=== PATIENT | male | born 1970 | race Caucasian/White ===

== ENCOUNTER 2022-03-27 07:16 | Outpatient (CLI) | payer OTHER, SELFPAY ==
--- NOTE | 2022-04-16 23:51 | WPDHOMESLEEP ---
Sleep Study - Home Unattended Date of Study: 03/27/22 Ordering Provider: Jung Gann, Interpreting Provider: Mya Trejo, DO Home Sleep Study Type: Watch PAT Height: 1.73 m Weight: 117.934 kg Body Mass Index: 39.5 Neck Circumference (inches): 16.75 [place]: 19 Reason for Sleep Study Loud snoring, unrefreshing sleep Sleep History The patient is a 51-year-old male with hyperlipidemia, depression, GERD, anxiety, neuropathy, polyarthralgia and history of tobacco use disorder that had a sleep study ordered by his physician for evaluation of sleep apnea. The patient frequently awakens from sleep short of breath. He occasionally awakens at night with heartburn, belching or cough. He constantly snores loud enough that others complain. He frequently has trouble sleeping when he has a cold. He occasionally wakes up gasping for air throughout the night. He occasionally has breathing problems at night observed by himself or others. He rarely sweats excessively at night. He denies having heart palpitations or irregular heartbeats during the night. He constantly falls asleep during the day and occasionally falls asleep while driving. He denies sleep paralysis, cataplexy and hypnagogic / hypnopompic hallucinations. He occasionally has trouble at school or work due to sleepiness. He occasionally feels afraid of going to sleep. He denies having nightmares. He rarely remembers his dreams. He constantly has thoughts racing through his mind. He frequently feels sad, depressed and anxious. He constantly has muscular tension. He occasionally notices parts of his body jerk. He frequently kicks during the night. He constantly experiences crawling and aching feelings in his legs and occasionally has leg pain during the night. He denies grinding his teeth during sleep and awakening with morning jaw pain. He is frequently bothered by pain during the day but rarely awakened by pain during the night. He constantly wakes up feeling stiff in the morning. He constantly wakes up with sore or achy muscles. He constantly wakes up with pain in the neck, spine or other joints. The patient goes to bed between 9-11 p.m. on both weekdays and weekends. He is unsure how long it takes him to fall asleep. He wakes up 4-6 times throughout the night for unknown reasons. It takes him 10-60 minutes to fall asleep. He wakes up at 4:30 a.m. on weekdays for work. He does not have a set wake-up time on the weekends. Typically gets 3-4 hours of interrupted sleep throughout the night. He does not stay in bed after waking up in the morning. He currently lives alone. He will consume caffeinated beverages within 2 hours of bedtime. He does not engage in physical exercise before bedtime. He will watch television before falling asleep. He will take naps in the afternoon or the evening and they are refreshing. The patient drinks 3 caffeinated beverages per day. The patient used to smoke cigarettes. He does not consume alcohol daily. He denies recreational drug use. [facility] Family History Family History Other Diabetes mellitus Hypertension Sleep Procedure The sleep study was completed using WatchPAT a technically adequate device with seven channels: peripheral arterial tone, actigraphy, body position, snore, respiratory movement, pulse oximetry, sleep staging, and heart rate. Prior to using the device, the patient received verbal and written instructions for its application and was provided with the help desk phone number for additional telephonic instruction with 24-hour availability of qualified personnel to answer questions. The study was scored using [facility] guidelines. Sleep Architecture The patient had a total recording time of 7 hours 18 minutes and total sleep time of 7 hours 1 minute. The sleep efficiency was 96.12%. Sleep latency was 5 minutes and REM latency was 57 minutes. The patient had
[2022-04-17] VITALS: BMI 39.5
--- NOTE | 2022-08-14 11:22 | SLEEP ---
new calls on new test dos 08/13
== END 2022-03-30 10:02 | disposition home or self-care (01) ==
PROVIDERS: PCP Family Medicine; Visit Provider Family Medicine
DX: G47.33 Obstructive sleep apnea (adult) (pediatric) (principal)
CPT/HCPCS: 95800

== ENCOUNTER 2022-06-29 12:58 | Inpatient (IN) | payer OTHER, SELFPAY ==
[2022-06-29 13:53] VITALS: BP 155/89; PULSE 89; RESP 16; TEMP 36.8; O2SAT 97
[2022-06-29 14:38] LABS: Hematocrit 41.1 % (42.0-52.0); Hemoglobin 13.3 g/dL (14.0-18.0); Mean Corpuscular HGB Conc 32.4 g/dl (32-36); Mean Corpuscular Hemoglobin 30.8 pg (26-34); Mean Corpuscular Volume 95.1 fl (80-100); Platelet Count Result 479 k/mm3 (150-375); Red Blood Count 4.32 M/mm3 (4.6-6.20); Red Cell Distribution Width 15.3 % (11.5-14.5); White Blood Count 12.2 K/mm3 (4.5-10.0)
[2022-06-29 14:50] LABS: Alanine Aminotransferase 27 U/L (6-50); Albumin Level 3.8 g/dL (3.5-5.1); Alkaline Phosphatase 81 U/L (38-126); Anion Gap 3 mmol/L (8-16); Aspartate Amino Transferase 24 U/L (17-59); Bilirubin,Total 0.5 mg/dL (0.2-1.3); Blood Urea Nitrogen 19 mg/dL (9-20); Carbon Dioxide 33 mmol/L (22-30); Chloride 101 mmol/L (98-107); Estimated CRCL calculation 137 ml/min; Estimated Glomerular Filt Rate > 60; Glucose 116 mg/dL (65-110); Potassium 4.3 mmol/L (3.4-5.0); Sodium 137 mmol/L (137-145)
[2022-06-29 14:58] LABS: Eosinophils Absolute Manual 0.24 K/mm3 (0.02-0.5); Eosinophils Percent Manual 2 % (0-4); Lymphocytes Absolute Manual 2.68 K/mm3 (1.1-4.5); Lymphocytes Percent Manual 22 % (18-44); Metamyelocytes Percent 3 %; Monocytes Absolute Manual 0.48 K/mm3 (0.1-0.90); Monocytes Percent Manual 4 % (3-9); Neutrophils Percent Manual 69 % (46-73); Total Cells Counted 100
[2022-06-29 14:59] LABS: Nucleated Red Blood Cells 1 %; Platelet Estimate Increased (Adequate); Schistocytes None Seen (NORMAL); Target Cells 1+ (NORMAL)
--- NOTE | 2022-06-29 15:19 | ED.SKABFB ---
HPI - Skin/Abscess/Foreign Bdy General Chief complaint: Skin/Abscess/Foreign Body Stated complaint: left leg cellulitis Time Seen by Provider: 06/29/22 14:50 History of Present Illness HPI narrative: Patient is a 51-year-old male who presents ER with cellulitis to his left leg. Symptoms began with fatigue on 06/19/2022. He then slept all day on 06/20 and 06/21. On 06/22 he ended up seeing a physician. He happened to be on a cruise when his symptoms were beginning. The physician on the boat put him on antibiotics and then he went to [place] on 06/23 and had an ultrasound rule out DVT in his left leg. He continues to take flucloxacillin without improvement of his leg. He has weeping coming from his leg. 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 Patient denies having diabetes despite having his chart documenting he is diabetic. Related Data Home Medications Medication Instructions Recorded Confirmed aspirin 81 mg tablet 81 mg PO DAILY 06/29/22 06/29/22 atorvastatin 40 mg tablet 40 mg PO HS 06/29/22 06/29/22 baclofen 20 mg tablet 20 mg PO PRN PRN Back Pain 06/29/22 06/29/22 diclofenac sodium 75 mg 75 mg PO AC 06/29/22 06/29/22 tablet,delayed release gabapentin 600 mg tablet 600 mg PO HS 06/29/22 06/29/22 metformin 500 mg tablet,extended 500 mg PO 3XW 06/29/22 06/29/22 release 24 hr omega-3 fatty acids 1,000 mg PO DAILY 06/29/22 06/29/22 Allergies Allergy/AdvReac Type Severity Reaction Status Date / Time No Known Allergies Allergy Verified 06/29/22 15:28 Review of Systems Review of Systems: All systems reviewed & are unremarkable except as noted in HPI and below Constitutional: Constitutional: Denies chills, Denies fatigue and Denies fever(s) Cardiovascular: Cardiovascular: Denies chest pain, Denies rapid heart rate and Denies radiating jaw, neck or arm pain Respiratory: Respiratory: Denies cough and Denies dyspnea Gastrointestinal: Gastrointestinal: Denies abdominal pain, Denies nausea and Denies vomiting Integumentary/Breasts: Skin/Breast: Reports erythema, Reports rash and Reports skin ulcer PMFSH Past Medical History Medical History (Updated 06/29/22 @ 22:33 by Michelle Zepeda NP) DM2 (diabetes mellitus, type 2) DVT (deep venous thrombosis) Hyperlipidemia Neuropathy Pancreatitis Surgical History Surgical History (Updated 06/29/22 @ 22:24 by Michelle Zepeda NP) H/O splenectomy History of pancreatic surgery History of tonsillectomy and adenoidectomy S/P IVC filter Family History Family History Mother Hypertension Thyroid condition Hyperlipidemia Father Kidney disease Lymphoma Sibling Hyperlipidemia Neuropathy Other Diabetes mellitus Social History Social History (Updated 06/29/22 @ 22:25 by Michelle Zepeda NP) Social History: He lives alone with his PET rabbit. He works for [employer]. He Runs the kitchen. He has no children and he is single. Code status full code Smoking packs per day: 1 Smoking cigarettes per day: 20.0 Years smoked: 38 Smoking pack-years: 38.00 Smoking status: Former smoker Tobacco type: cigarettes Second hand tobacco smoke exposure: No Alcohol intake: current Drinks per week: 1 Substance use: former Substance use type: marijuana and crack/cocaine Last use: 1999 Lack of Transportation: No Lack of Food: Never True Current Housing: I Have Housing Concerned About Future Housing: No Difficulty Paying Gas/Electric Bills: No Difficulty Paying for Meds: No Currently Unemployed: No Education: High School Diploma/GED Difficulty w/ Childcare or Family Care: No Spiritual care concerns: No Exam Narrative: GENERAL: Well-appearing, well-nourished, and in no acute distress. HEAD: Normocephalic, atraumatic. ENT: Mucous membranes moist. CH
[2022-06-29] MEDS: MORPHINE SULFATE (*CRX) 4 MG/ML INJ IV PUSH (15:36)
--- NOTE | 2022-06-29 15:53 | PM.IMHP ---
H&P: HPI History of Present Illness Date/Time: 06/29/22 15:53 Chief Complaint: Skin infection. Narrative: This is a 51-year-old male patient who had a pedicure prior to going on a cruise. During the cruise the patient notice that his left leg started to become red and during the course of the cruise his left leg continue to get redder and redder. He was seen by the physician on the boat and was given antibiotics. The patient stated that it did not improve and he was placed in the hospital in [facility] overnight. He stated that he was given IV antibiotics during the course of the night and then placed on p.o. medication. The patient stated that this all started with a blister to the left posterior heel area that then popped and the redness continued to grow bigger. He denies any fever or chills. However the patient stated that he is not getting any better. His white count is noted to be 12.2. H&H is 13.3 and 41.1. The patient is negative for influenza A/B and COVID. The patient is on metformin 3 times a week but is unsure if he is diabetic. The patient initially was started on vancomycin. Cefepime and Flagyl have been added. The left leg is red and edematous. The patient stated that he was already checked for DVT and was found to be negative. The patient was given morphine and vancomycin in the emergency room. The patient is being admitted to observation status on the date of service of 06/29/2022 Review of Systems Review of Systems: See HPI All systems reviewed & are unremarkable except as noted in HPI and below Constitutional: Constitutional: Reports as per HPI and Reports no additional constitutional complaints Eyes: Eyes: Reports as per HPI and Reports no additional eye complaints ENT: Reports system reviewed and no additional complaints, except as documented and Reports Normal hearing present Cardiovascular: Cardiovascular: Reports no additional cardiovascular complaints Respiratory: Respiratory: Reports no additional respiratory complaints and Reports no additional respiratory complaints Gastrointestinal: Gastrointestinal: Reports as per HPI and Reports no additional gastrointestinal complaints Musculoskeletal: Musculoskeletal: Reports no additional musculoskeletal complaints Integumentary/Breasts: Skin/Breast: Reports system reviewed and no additional complaints, except as docu and Reports as per HPI Neurologic: Reports system reviewed and no additional complaints, except as documented, Reports as per HPI and Reports Normal hearing present Psychiatric: Psychiatric: Reports no additional psychiatric complaints and Reports as per HPI Endocrine: Endocrine: Reports no additional endocrine complaints Hematologic/Lymphatic: Hematologic/Lymphatic: Reports no additional hematologic/lymphatic complaints Allergic/Immunologic: Allergic/Immunologic: Reports no additional allergic/immunologic complaints [facility] Past Medical History Medical History (Updated 06/29/22 @ 22:33 by Michelle Zepeda NP) DM2 (diabetes mellitus, type 2) DVT (deep venous thrombosis) Hyperlipidemia Neuropathy Pancreatitis Surgical History Surgical History (Updated 06/29/22 @ 22:24 by Michelle Zepeda NP) H/O splenectomy History of pancreatic surgery History of tonsillectomy and adenoidectomy S/P IVC filter Family History Family History Mother Hypertension Thyroid condition Hyperlipidemia Father Kidney disease Lymphoma Sibling Hyperlipidemia Neuropathy Other Diabetes mellitus Social History Social History (Updated 06/29/22 @ 22:25 by Michelle Zepeda NP) Social History: He lives alone with his PET rabbit. 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 Code status full code Smoking packs per day: 1 Smoking cigarettes per day: 20.0 Years smoked: 38 Smoking pack-years: 38.00 Smoking s
[2022-06-29 16:31] LABS: Influenza A QL RT-PCR Negative (Negative); Influenza B QL RT-PCR Negative (Negative); SARS-CoV-2 RNA PCR Negative
[2022-06-29 17:31] VITALS: BP 144/86; PULSE 90; RESP 18; O2SAT 98
[2022-06-29 17:54] LABS: Glucose Point of Care 94 mg/dl (65-105)
--- NOTE | 2022-06-29 18:33 | ADMGEN ---
This patient, Dominick Hernandez, was admitted to [facility] Surg Room 326-01. Patient/family oriented to hospital policies and general routines including ID bracelet, bed and alarms, visiting hours, pain management, procedures, bathroom and other care routines, personal items, smoking policy, room service/diet, and visiting hours. Information on how to activate the Rapid Response Team has been discussed. Patient/Family are encouraged to report perceived risks to care and to ask questions if they do not understand what they are told or what they should do.
[2022-06-29] MEDS: HYDROcodone/acetaminophen (*CRX) 5-325 MG TABLET 1 TAB PO (18:52)
[2022-06-29 21:06] LABS: Glucose Point of Care 141 mg/dl (65-105)
[2022-06-29 22:00] VITALS: BP 135/79; PULSE 87; RESP 16; TEMP 36.1; O2SAT 95
[2022-06-29] MEDS: GABAPENTIN 300 MG CAPSULE 600 MG PO (22:09)
[2022-06-29] MEDS: metroNIDAZOLE 500 MG/ISO 100ML 500 MG/100 ML BAG 100 MG IVPB (22:17)
[2022-06-30] MEDS: HYDROcodone/acetaminophen (*CRX) 5-325 MG TABLET 1 TAB PO ×4 (02:42→21:46)
[2022-06-30 06:00] VITALS: BP 150/71; PULSE 76; RESP 14; TEMP 36; O2SAT 95
[2022-06-30] MEDS: metroNIDAZOLE 500 MG/ISO 100ML 500 MG/100 ML BAG 100 MG IVPB ×3 (06:03→22:54)
[2022-06-30 07:39] LABS: Hematocrit 39.1 % (42.0-52.0); Hemoglobin 12.5 g/dL (14.0-18.0); Mean Corpuscular Hemoglobin 29.7 pg (26-34); Mean Corpuscular Volume 92.9 fl (80-100); Mean Platelet Volume 9.7 fl (7.4-10.4); Platelet Count Result 460 k/mm3 (150-375); Red Blood Count 4.21 M/mm3 (4.6-6.20); Red Cell Distribution Width 15.2 % (11.5-14.5)
[2022-06-30 07:48] LABS: Lactic Acid Reflex 0.9 mmol/L (0.7-2.0)
[2022-06-30 08:00] VITALS: BP 139/84; PULSE 91; RESP 18; TEMP 36.2; O2SAT 94
[2022-06-30 08:06] LABS: Band Neutrophils Percent 4 % (0-6); Eosinophils Absolute Manual 0.36 K/mm3 (0.02-0.5); Eosinophils Percent Manual 3 % (0-4); Lymphocytes Absolute Manual 2.16 K/mm3 (1.1-4.5); Metamyelocytes Percent 3 %; Monocytes Percent Manual 5 % (3-9); Neutrophils Absolute Manual 8.52 K/mm3 (1.3-6.7); Neutrophils Percent Manual 67 % (46-73); Schistocytes None Seen (NORMAL); Total Cells Counted 100
[2022-06-30 08:07] LABS: Anisocytosis 1+ (NORMAL); Atypical Lymphocytes Present
[2022-06-30] MEDS: ENOXAPARIN 40 MG/0.4 ML SYRINGE SUB-Q (08:08)
[2022-06-30] MEDS: ASPIRIN 81 MG CHEWABLE TABLET PO (08:08)
[2022-06-30 08:17] LABS: Hemoglobin A1C 5.9 % (<5.7)
[2022-06-30 08:19] LABS: Glucose Point of Care 129 mg/dl (65-105)
--- NOTE | 2022-06-30 10:57 | PM.IMPN ---
Progress Note: A&P Assessment and Plan (1) Cellulitis: Code(s): L03.90 - Cellulitis, unspecified Status: Acute Assessment and Plan: The patient was placed on vancomycin, Flagyl and cefepime. The patient had been treated with outpatient antibiotics as well as IV antibiotics in hospital overnight on his cruise vacation. Blood and wound cultures are pending. Tailor antibiotics to culture results (2) DM2 (diabetes mellitus, type 2): Code(s): E11.9 - Type 2 diabetes mellitus without complications Status: Acute Assessment and Plan: The patient was on metformin 3 times a week. However the patient stated that he is not sure why he is on it and does not think that he is diabetic. He is agreeable to Accu-Cheks AC and HS with sliding scale insulin and checking A1c. (3) Neuropathy: Code(s): G62.9 - Polyneuropathy, unspecified Status: Acute Assessment and Plan: Continue with gabapentin (4) Hyperlipidemia: Code(s): E78.5 - Hyperlipidemia, unspecified Status: Acute Assessment and Plan: Continue with atorvastatin (5) KAVYA (obstructive sleep apnea): Code(s): G47.33 - Obstructive sleep apnea (adult) (pediatric) Status: Acute Assessment and Plan: -the patient wears a BiPAP at home. Please titrate to home settings. Subjective Date/time seen: 06/30/22 10:57 No new complaints Exam Narrative: left leg Const: General: cooperative, healthy appearing, comfortable, no acute distress, well developed, awake, Physically active, average body habitus and well nourished Nutritional Appearance: average body habitus and well nourished Orientation/consciousness: oriented to person, oriented to place, oriented to time and patient oriented x3 Limitations: no limitations HENMT: Head: normal to inspection, No palpable skull fracture present, normocephalic, atraumatic and abrasion Ears: hearing grossly normal bilaterally, external ears normal and TM's normal bilaterally Face/Nose/Sinus: Normal external nose present, Normal nares present and No nasal polyps present Mouth: Yes Normal oral and palatal mucosa present Throat: posterior oropharynx normal Eyes: General: appearance normal, both eyes and all related structures Alignment and Position: alignment normal Periorbital: periorbital findings normal Eyelids: eyelids normal Conjunctivae: conjunctivae normal Sclera: sclerae normal Cornea: corneas normal Pupils: Equal, round and reactive pupils present and Pupil accommodation reflex normal EOM: EOMs intact bilaterally Neck: Neck: normal visual inspection, full ROM, no lymphadenopathy, trachea midline and supple Thyroid: thyroid normal Carotids: normal carotid upstroke Lymphatic: no lymphadenopathy noted Chest: Chest palpation & inspection: normal inspection of the chest Resp: Effort & Inspection: normal respiratory effort Auscultation: clear to auscultation bilaterally Percussion: percussion normal Cardio: Palpation: normal PMI Rate: regular rate Rhythm: regular rhythm Heart sounds: S1 normal heart sound present and S2 normal heart sound present Peripheral pulses: Peripheral pulses 2+ throughout GI: Inspection: normal to inspection Auscultation: normal bowel sounds Rectal Exam: deferred : General: Yes no CVA tenderness Back/Spine/Pelvis: Back: no CVA tenderness Cervical Spine: cervical ROM normal Thoracic/Lumbar Spine: thoracic and lumbar spine normal to inspection Pelvis: no pain with anterior-posterior compression Skin: General skin exam: normal color Lesions: no lesions Rashes: no rashes Trauma: no lacerations or abrasions Wounds: no wounds Hair: normal Nails: normal Neuro: General: oriented to person, oriented to place, oriented to time and patient oriented x3 Cranial nerves: Yes Equal, round and reactive pupils present and Yes Normal hearing present Cognition (Neuro): normal cognition Speech: normal speech Gait exam (Neuro): Normal ga
[2022-06-30 12:00] VITALS: BP 138/78; PULSE 78; RESP 16; TEMP 36.3; O2SAT 95
[2022-06-30 12:04] LABS: Glucose Point of Care 90 mg/dl (65-105)
[2022-06-30 13:35] VITALS: BP 127/77; PULSE 71; RESP 16; TEMP 36.4; O2SAT 94
[2022-06-30] MEDS: OMEGA 3 POLYUNSAT FATTY ACIDS 1 GM CAP PO ×2 (14:15→17:25)
[2022-06-30] MEDS: SILVERGEL (ELTA) 45 ML 1 APPLIC TOPICAL (14:18)
[2022-06-30 16:00] VITALS: BP 138/75; PULSE 76; RESP 16; TEMP 36.3; O2SAT 95
[2022-06-30] MEDS: DICLOFENAC SOD 75 MG TABLET.EC PO (17:26)
[2022-06-30 17:33] LABS: Glucose Point of Care 83 mg/dl (65-105)
[2022-06-30 20:00] VITALS: BP 144/87; PULSE 74; RESP 16; TEMP 36.3; O2SAT 93
[2022-06-30] MEDS: ATORVASTATIN 40 MG TABLET PO (20:39)
[2022-06-30] MEDS: GABAPENTIN 300 MG CAPSULE 600 MG PO (20:39)
[2022-06-30 21:45] LABS: Glucose Point of Care 133 mg/dl (65-105)
--- NOTE | 2022-06-30 22:10 | PCRCNOTE ---
pt states that he is waiting on his doctor to get him a home CPAP, and he has not worn a CPAP before. states he will wait for the outpatient study.
[2022-07-01] VITALS: BP 129/81; PULSE 76; RESP 16; TEMP 35.9; O2SAT 94
[2022-07-01 03:59] LABS: Vancomycin Trough 13.6 ug/mL (10.0-20.0)
[2022-07-01 04:00] VITALS: BP 145/97; PULSE 90; RESP 14; TEMP 35.9; O2SAT 93
[2022-07-01] MEDS: metroNIDAZOLE 500 MG/ISO 100ML 500 MG/100 ML BAG 100 MG IVPB ×3 (07:31→21:53)
[2022-07-01 08:00] VITALS: BP 138/88; PULSE 75; RESP 16; TEMP 36; O2SAT 92
[2022-07-01 08:15] LABS: Glucose Point of Care 110 mg/dl (65-105)
--- NOTE | 2022-07-01 08:44 | PM.IMPN ---
Progress Note: A&P Assessment and Plan (1) Cellulitis: Code(s): L03.90 - Cellulitis, unspecified Status: Acute (2) DM2 (diabetes mellitus, type 2): Code(s): E11.9 - Type 2 diabetes mellitus without complications Status: Acute (3) Neuropathy: Code(s): G62.9 - Polyneuropathy, unspecified Status: Acute (4) Hyperlipidemia: Code(s): E78.5 - Hyperlipidemia, unspecified Status: Acute (5) KAVYA (obstructive sleep apnea): Code(s): G47.33 - Obstructive sleep apnea (adult) (pediatric) Status: Acute Plan Assessment and Plan (1) Cellulitis: ?Code(s): L03.90 - Cellulitis, unspecified ?Status:?Acute ?Assessment and Plan: The patient was placed on vancomycin, Flagyl and cefepime.? The patient had been treated with outpatient antibiotics as well as IV antibiotics in hospital overnight on his cruise vacation. Blood and wound cultures no growth so sore for Cellulitis is improving Continue current antibiotics (2) DM2 (diabetes mellitus, type 2): ?Code(s): E11.9 - Type 2 diabetes mellitus without complications ?Status:?Acute ?Assessment and Plan: The patient was on metformin 3 times a week.? However the patient stated that he is not sure why he is on it and does not think that he is diabetic.? He is agreeable to Accu-Cheks AC and HS with sliding scale insulin and checking A1c. (3) Neuropathy: ?Code(s): G62.9 - Polyneuropathy, unspecified ?Status:?Acute ?Assessment and Plan: Continue with gabapentin (4) Hyperlipidemia: ?Code(s): E78.5 - Hyperlipidemia, unspecified ?Status:?Acute ?Assessment and Plan: Continue with atorvastatin (5) KAVYA (obstructive sleep apnea): ?Code(s): G47.33 - Obstructive sleep apnea (adult) (pediatric) ?Status:?Acute ?Assessment and Plan: -the patient wears a BiPAP at home.? Please titrate to home settings. Subjective Date/time seen: 07/01/22 08:44 Saw exam patient. Denies fever, chills, chest pain, shortness of breath. Patient has no new issue even over the night. Swelling, redness, pain of the left lower extremity is subsiding Exam Narrative: GENERAL: Pleasant, in no acute distress. Well-nourished. - EYES: EOMI. Anicteric. - HENT: Moist mucous membranes. - LUNGS: Clear to auscultation bilaterally, no wheezing, rhonchi, or rales. - CARDIOVASCULAR: Regular rate and rhythm. No murmur. No JVD. - ABDOMEN: Soft, non-tender and non-distended. No palpable masses. - EXTREMITIES: 2+ the left lower extremity edema. Peripheral pulses 2+. Non-tender. - NEUROLOGIC: No focal neurological deficits. CN II-XII grossly intact. - PSYCHIATRIC: Awake, Alert and oriented x 3. Appropriate mood and affect. - SKIN: Tenderness, swelling, erythema of left lower extremity. - LYMPH: No cervical lymphadenopathy. Objective Data Vital Signs Vital Signs: Vital Signs - 24 hr 06/30/22 13:35 06/30/22 12:00 06/30/22 16:00 Temperature 97.6 F 97.4 F L 97.4 F L Pulse Rate 71 78 76 Respiratory Rate 16 16 16 Blood Pressure 127/77 138/78 138/75 Pulse Oximetry 94 95 95 Oxygen Delivery 06/30/22 20:00 07/01/22 00:00 06/30/22 20:00 Temperature 97.3 F L 96.7 F L Pulse Rate 74 76 Respiratory Rate 16 16 Blood Pressure 144/87 H 129/81 Pulse Oximetry 93 94 Oxygen Delivery Room Air 07/01/22 04:00 07/01/22 08:00 Temperature 96.7 F L 96.8 F L Pulse Rate 90 75 Respiratory Rate 14 16 Blood Pressure 145/97 H 138/88 Pulse Oximetry 93 92 Oxygen Delivery Intake/Output Intake/Output: Intake & Output 06/28/22 06/29/22 06/30/22 07/01/22 23:59 23:59 23:59 23:59 Intake Total 2967 450 Balance 2967 450 Meds/Results Medications: Active Medications Generic Name Dose Route Start Last Admin Trade Name Freq PRN Reason Stop Dose Admin Acetaminophen 650 mg 02/13/23 15:22 Acetaminophen 325 Mg Tablet PO Q4H PRN Mild Pain (1-3) or Fever Hydrocodone Bitart/Acetaminophe
[2022-07-01] MEDS: ASPIRIN 81 MG CHEWABLE TABLET PO (08:49)
[2022-07-01] MEDS: OMEGA 3 POLYUNSAT FATTY ACIDS 1 GM CAP PO ×3 (08:49→16:43)
[2022-07-01] MEDS: SILVERGEL (ELTA) 45 ML 1 APPLIC TOPICAL (08:49)
[2022-07-01] MEDS: ENOXAPARIN 40 MG/0.4 ML SYRINGE SUB-Q (08:49)
[2022-07-01] MEDS: DICLOFENAC SOD 75 MG TABLET.EC PO ×2 (08:49→16:43)
[2022-07-01] MEDS: HYDROcodone/acetaminophen (*CRX) 5-325 MG TABLET 1 TAB PO ×2 (08:54→20:25)
[2022-07-01 09:52] LABS: Hematocrit 39.8 % (42.0-52.0); Hemoglobin 12.6 g/dL (14.0-18.0); Mean Corpuscular HGB Conc 31.7 g/dl (32-36); Mean Corpuscular Hemoglobin 29.7 pg (26-34); Mean Corpuscular Volume 93.9 fl (80-100); Mean Platelet Volume 10.1 fl (7.4-10.4); Platelet Count Result 454 k/mm3 (150-375); Red Blood Count 4.24 M/mm3 (4.6-6.20); White Blood Count 11.9 K/mm3 (4.5-10.0)
[2022-07-01 10:15] LABS: Anion Gap 1 mmol/L (8-16); Blood Urea Nitrogen 13 mg/dL (9-20); Calcium 8.4 mg/dL (8.4-10.2); Carbon Dioxide 35 mmol/L (22-30); Chloride 99 mmol/L (98-107); Estimated CRCL calculation 137 ml/min; Estimated Glomerular Filt Rate > 60; Glucose 140 mg/dL (65-110); Sodium 135 mmol/L (137-145)
[2022-07-01 11:26] LABS: Glucose Point of Care 85 mg/dl (65-105)
[2022-07-01 14:00] VITALS: BP 135/83; PULSE 83; RESP 18; TEMP 36.9; O2SAT 97
[2022-07-01 16:37] LABS: Glucose Point of Care 89 mg/dl (65-105)
[2022-07-01] MEDS: GABAPENTIN 300 MG CAPSULE 600 MG PO (20:25)
[2022-07-01] MEDS: ATORVASTATIN 40 MG TABLET PO (20:25)
[2022-07-01 21:14] LABS: Glucose Point of Care 96 mg/dl (65-105)
[2022-07-01 21:39] VITALS: BP 118/66; PULSE 83; RESP 16; TEMP 36.4; O2SAT 94
[2022-07-02 06:00] VITALS: BP 133/82; PULSE 80; RESP 16; TEMP 36.1; O2SAT 91
[2022-07-02] MEDS: metroNIDAZOLE 500 MG/ISO 100ML 500 MG/100 ML BAG 100 MG IVPB ×3 (06:24→20:31)
[2022-07-02 07:48] LABS: Glucose Point of Care 102 mg/dl (65-105)
[2022-07-02 08:22] VITALS: O2SAT 90
[2022-07-02] MEDS: DICLOFENAC SOD 75 MG TABLET.EC PO ×2 (08:56→17:18)
[2022-07-02] MEDS: ASPIRIN 81 MG CHEWABLE TABLET PO (08:56)
[2022-07-02] MEDS: OMEGA 3 POLYUNSAT FATTY ACIDS 1 GM CAP PO ×3 (08:56→17:18)
[2022-07-02] MEDS: ENOXAPARIN 40 MG/0.4 ML SYRINGE SUB-Q (08:56)
[2022-07-02] MEDS: SILVERGEL (ELTA) 45 ML 1 APPLIC TOPICAL (08:56)
[2022-07-02 11:40] LABS: Glucose Point of Care 72 mg/dl (65-105)
[2022-07-02 12:21] LABS: Basophils Absolute Auto 0.1 K/mm3 (0.0-0.1); Basophils Percent Auto 0.7 % (0.2-1.2); Eosinophils Absolute Auto 0.6 K/mm3 (0-0.3); Eosinophils Percent Auto 4.6 % (0-4.4); Hematocrit 40.7 % (42.0-52.0); Immature Granulocyte Absolute 0.23 K/mm3 (0.00-0.031); Immature Granulocyte Percent A 1.9 % (0-0.5); Lymphocytes Absolute Auto 2.11 K/mm3 (0.9-3.2); Lymphocytes Percent Auto 17.5 % (18.3-44.2); Mean Corpuscular HGB Conc 31.9 g/dl (32-36); Mean Corpuscular Hemoglobin 29.5 pg (26-34); Mean Corpuscular Volume 92.3 fl (80-100); Mean Platelet Volume 9.8 fl (7.4-10.4); Monocytes Absolute Auto 1.4 K/mm3 (0.1-0.6); Monocytes Percent Auto 11.9 % (2.6-8.5); Neutrophils Absolute Auto 7.6 K/mm3 (1.3-6.7); Neutrophils Percent Auto 63.4 % (45.5-73.1); Platelet Count Result 465 k/mm3 (150-375); Red Blood Count 4.41 M/mm3 (4.6-6.20); Red Cell Distribution Width 14.6 % (11.5-14.5); White Blood Count 12.1 K/mm3 (4.5-10.0)
[2022-07-02 12:34] LABS: Anion Gap 1 mmol/L (8-16); Blood Urea Nitrogen 15 mg/dL (9-20); Calcium 8.7 mg/dL (8.4-10.2); Carbon Dioxide 35 mmol/L (22-30); Chloride 100 mmol/L (98-107); Estimated CRCL calculation 137 ml/min; Estimated Glomerular Filt Rate > 60; Glucose 75 mg/dL (65-110); Potassium 4.4 mmol/L (3.4-5.0); Sodium 136 mmol/L (137-145)
[2022-07-02 13:41] VITALS: BP 133/82; PULSE 83; RESP 20; TEMP 36.5; O2SAT 93
--- NOTE | 2022-07-02 14:28 | PM.CNOR ---
Assessment and Plan Assessment and plan (1) Cellulitis: Code(s): L03.90 - Cellulitis, unspecified Status: Acute Assessment and Plan: Radha gentleman complains of pain and swelling in the left leg. Was diagnosed with cellulitis while on a cruise. Podiatry appointment just prior. Developed severe redness pain and swelling. Subsequent fracture blisters along the lateral ankle and lateral leg. Several courses of IV and oral antibiotics. Pain and swelling are now improving although fracture blisters remain. Examination Overweight male. Pleasant. No distress. Alert orient x3. Moderate swelling to the left leg with mild to moderate erythema primarily laterally. The skin appears somewhat bruise. There is a large blister along the lateral posterior hindfoot. Serous drainage from several released blisters. Some blistering also at the proximal lateral leg. Wiggles toes. Mild diffuse swelling throughout the hindfoot and forefoot. Capillary refill brisk. Impression Severe cellulitis with massive swelling and fracture blisters left leg. No evidence for ankle involvement. Ankle movement is good in he is able to bear weight. Overall he is clinically improving. I agree with the plan for edema management and antibiotics. Local wound care with Silvadene ointment. Thank you for the consultation. History of Present Illness HPI Consult date: 07/02/22 Chief complaint: Cellulitis Review of Systems Review of Systems: All systems reviewed & are unremarkable except as noted in HPI and below PMFSH Past Medical History Medical History DM2 (diabetes mellitus, type 2) DVT (deep venous thrombosis) Hyperlipidemia Neuropathy Pancreatitis Surgical History Surgical History H/O splenectomy History of pancreatic surgery History of tonsillectomy and adenoidectomy S/P IVC filter Family History Family History Mother Hypertension Thyroid condition Hyperlipidemia Father Kidney disease Lymphoma Sibling Hyperlipidemia Neuropathy Other Diabetes mellitus Social History Social History Social History: He lives alone with his PET rabbit. 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 Code status full code Smoking packs per day: 1 Smoking cigarettes per day: 20.0 Years smoked: 38 Smoking pack-years: 38.00 Smoking status: Former smoker Tobacco type: cigarettes Second hand tobacco smoke exposure: No Alcohol intake: current Drinks per week: 1 Substance use: former Substance use type: marijuana and crack/cocaine Last use: 1999 Lack of Transportation: No Lack of Food: Never True Current Housing: I Have Housing Concerned About Future Housing: No Difficulty Paying Gas/Electric Bills: No Difficulty Paying for Meds: No Currently Unemployed: No Education: High School Diploma/GED Difficulty w/ Childcare or Family Care: No Spiritual care concerns: No Meds Home Medications and Allergies Home Medications Medication Instructions Recorded Confirmed Type aspirin 81 mg tablet 81 mg PO DAILY 06/29/22 06/29/22 History atorvastatin 40 mg tablet 40 mg PO HS 06/29/22 06/29/22 History baclofen 20 mg tablet 20 mg PO PRN PRN Back Pain 06/29/22 06/29/22 History diclofenac sodium 75 mg 75 mg PO AC 06/29/22 06/29/22 History tablet,delayed release gabapentin 600 mg tablet 600 mg PO HS 06/29/22 06/29/22 History metformin 500 mg tablet,extended 500 mg PO 3XW 06/29/22 06/29/22 History release 24 hr omega-3 fatty acids 1,000 mg PO DAILY 06/29/22 06/29/22 History Allergies Allergy/AdvReac Type Severity Reaction Status Date / Time No Known Allergies Allergy Verified
[2022-07-02] MEDS: HYDROcodone/acetaminophen (*CRX) 5-325 MG TABLET 1 TAB PO (15:29)
[2022-07-02 16:43] LABS: Glucose Point of Care 82 mg/dl (65-105)
--- NOTE | 2022-07-02 17:00 | PM.IMPN ---
Progress Note: A&P Assessment and Plan (1) Cellulitis: Code(s): L03.90 - Cellulitis, unspecified Status: Acute (2) DM2 (diabetes mellitus, type 2): Code(s): E11.9 - Type 2 diabetes mellitus without complications Status: Acute (3) Neuropathy: Code(s): G62.9 - Polyneuropathy, unspecified Status: Acute (4) Hyperlipidemia: Code(s): E78.5 - Hyperlipidemia, unspecified Status: Acute (5) KAVYA (obstructive sleep apnea): Code(s): G47.33 - Obstructive sleep apnea (adult) (pediatric) Status: Acute Plan Assessment and Plan (1) Cellulitis: ?Code(s): L03.90 - Cellulitis, unspecified ?Status:?Acute ?Assessment and Plan: The patient was placed on vancomycin, Flagyl and cefepime.? The patient had been treated with outpatient antibiotics as well as IV antibiotics in hospital overnight on his cruise vacation. Blood and wound cultures no growth so sore for Cellulitis is improving. But there is a large blister anterolateral and posterior of left foot. Appreciated orthopedic surgeon's evaluation, there was no involvement of left ankle Continue current antibiotics (2) DM2 (diabetes mellitus, type 2): ?Code(s): E11.9 - Type 2 diabetes mellitus without complications ?Status:?Acute ?Assessment and Plan: The patient was on metformin 3 times a week.? However the patient stated that he is not sure why he is on it and does not think that he is diabetic.? He is agreeable to Accu-Cheks AC and HS with sliding scale insulin and checking A1c. (3) Neuropathy: ?Code(s): G62.9 - Polyneuropathy, unspecified ?Status:?Acute ?Assessment and Plan: Continue with gabapentin (4) Hyperlipidemia: ?Code(s): E78.5 - Hyperlipidemia, unspecified ?Status:?Acute ?Assessment and Plan: Continue with atorvastatin (5) KAVYA (obstructive sleep apnea): ?Code(s): G47.33 - Obstructive sleep apnea (adult) (pediatric) ?Status:?Acute ?Assessment and Plan: -the patient wears a BiPAP at home.? Please titrate to home settings. Subjective Date/time seen: 07/02/22 17:00 Saw and examined patient in bedside. Patient is afebrile, no new issue even overnight. A large blister over the lateral posterior of left foot with some discharge Exam Narrative: GENERAL: Pleasant, in no acute distress. Well-nourished. - EYES: EOMI. Anicteric. - HENT: Moist mucous membranes. - LUNGS: Clear to auscultation bilaterally, no wheezing, rhonchi, or rales. - CARDIOVASCULAR: Regular rate and rhythm. No murmur. No JVD. - ABDOMEN: Soft, non-tender and non-distended. No palpable masses. - EXTREMITIES: 2+ the left lower extremity edema. Large blister with some serous discharge from lateral and posterior left foot peripheral pulses 2+. Non-tender. - NEUROLOGIC: No focal neurological deficits. CN II-XII grossly intact. - PSYCHIATRIC: Awake, Alert and oriented x 3. Appropriate mood and affect. - SKIN: Tenderness, swelling, erythema of left lower extremity. - LYMPH: No cervical lymphadenopathy. Objective Data Vital Signs Vital Signs: Vital Signs - 24 hr 07/01/22 21:39 07/02/22 06:00 07/02/22 08:22 Temperature 97.6 F 97 F L Pulse Rate 83 80 Respiratory Rate 16 16 Blood Pressure 118/66 133/82 Pulse Oximetry 94 91 90 Oxygen Delivery Room Air 07/02/22 08:00 07/02/22 13:41 Temperature 97.7 F Pulse Rate 83 Respiratory Rate 20 Blood Pressure 133/82 Pulse Oximetry 93 Oxygen Delivery Room Air Intake/Output Intake/Output: Intake & Output 06/29/22 06/30/22 07/01/22 07/02/22 23:59 23:59 23:59 23:59 Intake Total 2968 7426 2615 Balance 2965 1303 2611 Meds/Results Medications: Active Medications Generic Name Dose Route Start Last Admin Trade Name Freq PRN Reason Stop Dose Admin Acetaminophen 650 mg 06/29/22 15:22 Acetaminophen 325 Mg Tablet PO Q4H PRN Mild Pain (1-3) or Fever Hydrocodone Bitart/Acetaminophen 1 tab 06/17
[2022-07-02] MEDS: GABAPENTIN 300 MG CAPSULE 600 MG PO (20:31)
[2022-07-02] MEDS: ATORVASTATIN 40 MG TABLET PO (20:31)
[2022-07-02 22:00] VITALS: BP 138/86; PULSE 78; RESP 18; TEMP 36.2; O2SAT 96
[2022-07-03 02:57] LABS: Glucose Point of Care 166 mg/dl (65-105)
[2022-07-03 06:00] VITALS: BP 153/83; PULSE 73; RESP 18; TEMP 36.1; O2SAT 93
[2022-07-03] MEDS: metroNIDAZOLE 500 MG/ISO 100ML 500 MG/100 ML BAG 100 MG IVPB ×3 (06:46→21:31)
[2022-07-03 07:57] LABS: Glucose Point of Care 102 mg/dl (65-105)
[2022-07-03] MEDS: ENOXAPARIN 40 MG/0.4 ML SYRINGE SUB-Q (08:38)
[2022-07-03] MEDS: ASPIRIN 81 MG CHEWABLE TABLET PO (08:38)
[2022-07-03] MEDS: OMEGA 3 POLYUNSAT FATTY ACIDS 1 GM CAP PO ×3 (08:38→17:02)
[2022-07-03] MEDS: DICLOFENAC SOD 75 MG TABLET.EC PO ×2 (08:38→17:02)
[2022-07-03] MEDS: SILVERGEL (ELTA) 45 ML 1 APPLIC TOPICAL (08:39)
[2022-07-03] MEDS: HYDROcodone/acetaminophen (*CRX) 5-325 MG TABLET 1 TAB PO ×2 (08:52→21:35)
--- NOTE | 2022-07-03 11:00 | P.CDI_ITS ---
CDI Query Clarification Request cellulitis is not related to diabetes <Nicholas Medel MD - Last Filed: 07/04/22 14:28> Clarified Diagnosis Clarified Diagnosis: Please clarify if there is a cause and effect relationship between Cellulitis and Diabetes Mellitus. * Cellulitis is related to Diabetes Mellitus. * Cellulitis is not related to Diabetes Mellitus. * Unknown if Cellulitis is related to Diabetes Mellitus. <Lizabeth Long RN - Last Filed: 07/03/22 11:03>
--- NOTE | 2022-07-03 11:00 | WPDCDIQUERY2 ---
CDI Query Clarification Request cellulitis is not related to diabetes <Nicohlas Medel MD - Last Filed: 07/04/22 14:28> Clarified Diagnosis Clarified Diagnosis: Please clarify if there is a cause and effect relationship between Cellulitis and Diabetes Mellitus. Cellulitis is related to Diabetes Mellitus. Cellulitis is not related to Diabetes Mellitus. Unknown if Cellulitis is related to Diabetes Mellitus. <Lizabeth Long RN - Last Filed: 07/03/22 11:03>
[2022-07-03 11:54] LABS: Glucose Point of Care 83 mg/dl (65-105)
[2022-07-03] MEDS: MORPHINE SULFATE (*CRX) 4 MG/ML INJ IV PUSH (13:50)
[2022-07-03 14:00] VITALS: BP 123/81; PULSE 85; RESP 20; TEMP 36.6; O2SAT 96
--- NOTE | 2022-07-03 14:05 | PM.PNORT ---
Progress Note: A&P Assessment and Plan (1) Cellulitis: Code(s): L03.90 - Cellulitis, unspecified Status: Acute Assessment and Plan: Severe cellulitis with massive swelling and fracture blisters left leg.?Cellulitis, pain, and swelling continue to improve. Patient is pleased with his progress. He thinks that cellulitis developed from a pedicure. He had one blister on his foot debrided today. Dressing dry and intact. No evidence for ankle involvement.? Ankle movement is good in he is able to bear weight.? Overall he is clinically improving.? I agree with the plan for edema management and antibiotics.? Local wound care with Silvadene ointment.? Thank you for the consultation. Subjective Subjective Date/Time Seen: 07/03/22 14:05 Interval history: Patient notes that he has some increased pain today because his wound on the foot was debrided today. Notes that overall he is doing much better. Redness and swelling improving. Blisters healing. Review of Systems Review of Systems: All systems reviewed & are unremarkable except as noted in HPI and below Exam Narrative: Overweight 51 y/o male.? Pleasant.? No distress.? Alert orient x3.?Moderate swelling to the left leg with mild to moderate erythema primarily laterally. Erythema seems to be improving.? There is a large blister along the lateral posterior hindfoot.? Serous drainage from several released blisters.? Some blistering also at the proximal lateral leg.? Wiggles toes.? Mild diffuse swelling throughout the hindfoot and forefoot.? Capillary refill brisk. Objective Data Vital Signs Vital Signs: Vital Signs - 24 hr 07/02/22 22:00 07/02/22 20:00 07/03/22 06:00 Temperature 97.2 F L 96.9 F L Pulse Rate 78 73 Respiratory Rate 18 18 Blood Pressure 138/86 153/83 H Pulse Oximetry 96 93 Oxygen Delivery Room Air 07/03/22 08:00 07/03/22 14:00 Temperature 98 F Pulse Rate 85 Respiratory Rate 20 Blood Pressure 123/81 Pulse Oximetry 96 Oxygen Delivery Room Air Intake/Output Intake/Output: Intake & Output 06/30/22 07/01/22 07/02/22 07/03/22 23:59 23:59 23:59 23:59 Intake Total 2967 3630 4396 2080 Balance 2967 3630 4396 2080 Meds/Results Medications: Active Medications Generic Name Dose Route Start Last Admin Trade Name Freq PRN Reason Stop Dose Admin Acetaminophen 650 mg 06/29/22 15:22 Acetaminophen 325 Mg Tablet PO Q4H PRN Mild Pain (1-3) or Fever Hydrocodone Bitart/Acetaminophen 1 tab 06/29/22 15:22 07/03/22 08:52 Hydrocodone/Acetaminophen (*Crx) 5-325 Mg Tablet PO 1 tab Q4H PRN Administration Pain Rated 4-6 Aspirin 81 mg 06/30/22 09:00 07/03/22 08:38 Aspirin 81 Mg Chewable Tablet PO 81 mg DAILY ANA Administration Atorvastatin Calcium 40 mg 06/29/22 22:30 07/02/22 20:31 Atorvastatin 40 Mg Tablet PO 40 mg HS ANA Administration Baclofen 20 mg 06/29/22 22:23 Baclofen 10 Mg Tablet PO PRN PRN Back Pain Dextrose 12.5 gm 06/29/22 15:56 Dextrose 50% 25 Gm/50 Ml Syringe IV PUSH PRN PRN Hypoglycemia Protocol Diclofenac Sodium 75 mg 06/30/22 17:00 07/03/22 08:38 Diclofenac Sod 75 Mg Tablet.Ec PO 75 mg BIDWM ANA Administration Enoxaparin Sodium 40 mg 06/30/22 09:00 07/03/22 08:38 Enoxaparin 40 Mg/0.4 Ml Syringe SUB-Q 40 mg DAILY ANA Administration Fish Oil 1 gm 06/30/22 13:00 07/03/22 11:57 [place] 3 Polyunsat Fatty Acids 1 Gm Cap PO 07/30/22 12:59 1 gm TID ANA Administration Gabapentin 600 mg 06/30/22 21:00 07/02/22 20:31 Gabapentin 300 Mg Capsule PO 600 mg HS ANA Administration Glucagon 1 mg 06/29/22 15:56 Glucagon For Inj 1 Mg Vial IM PRN PRN Hypoglycemia Protocol Glucose 15 gm 06/29/22 15:56 Glucose Oral Gel 15 Gm Of Glucse In 37.5 Gm Tube PO PRN PRN Hypoglycemia Protocol Cefepime HCl 2 gm in 50 mls @ 100 mls/hr 06/30/22 09:00 07/03/22 08:39
[2022-07-03 15:25] LABS: Vancomycin Trough 16.1 ug/mL (10.0-20.0)
--- NOTE | 2022-07-03 15:27 | PM.IMPN ---
Progress Note: A&P Assessment and Plan (1) Cellulitis: Code(s): L03.90 - Cellulitis, unspecified Status: Acute (2) DM2 (diabetes mellitus, type 2): Code(s): E11.9 - Type 2 diabetes mellitus without complications Status: Acute (3) Neuropathy: Code(s): G62.9 - Polyneuropathy, unspecified Status: Acute (4) Hyperlipidemia: Code(s): E78.5 - Hyperlipidemia, unspecified Status: Acute (5) KAVYA (obstructive sleep apnea): Code(s): G47.33 - Obstructive sleep apnea (adult) (pediatric) Status: Acute Plan Assessment and Plan (1) Cellulitis: ?Code(s): L03.90 - Cellulitis, unspecified ?Status:?Acute ?Assessment and Plan: The patient was placed on vancomycin, Flagyl and cefepime.? The patient had been treated with outpatient antibiotics as well as IV antibiotics in hospital overnight on his [place] vacation. Blood and wound cultures no growth so sore for Cellulitis is improving. But there was large blister anterolateral and posterior of left foot. Status post debridement 07/02. appreciated orthopedic surgeon's evaluation and treatment. there was no involvement of left ankle per orthopedic surgeon's evaluation Continue current antibiotics (2) DM2 (diabetes mellitus, type 2): ?Code(s): E11.9 - Type 2 diabetes mellitus without complications ?Status:?Acute ?Assessment and Plan: The patient was on metformin 3 times a week.? However the patient stated that he is not sure why he is on it and does not think that he is diabetic.? He is agreeable to Accu-Cheks AC and HS with sliding scale insulin and checking A1c. (3) Neuropathy: ?Code(s): G62.9 - Polyneuropathy, unspecified ?Status:?Acute ?Assessment and Plan: Continue with gabapentin (4) Hyperlipidemia: ?Code(s): E78.5 - Hyperlipidemia, unspecified ?Status:?Acute ?Assessment and Plan: Continue with atorvastatin (5) KAVYA (obstructive sleep apnea): ?Code(s): G47.33 - Obstructive sleep apnea (adult) (pediatric) ?Status:?Acute ?Assessment and Plan: -the patient wears a BiPAP at home.? Please titrate to home settings. Subjective Date/time seen: 07/03/22 15:27 Interval history: Saw on exam patient today, patient underwent local debridement of left heel. Afebrile, hemodynamically stable. No new issue or events overnight Exam Narrative: GENERAL: Pleasant, in no acute distress. Well-nourished. - EYES: EOMI. Anicteric. - HENT: Moist mucous membranes. - LUNGS: Clear to auscultation bilaterally, no wheezing, rhonchi, or rales. - CARDIOVASCULAR: Regular rate and rhythm. No murmur. No JVD. - ABDOMEN: Soft, non-tender and non-distended. No palpable masses. - EXTREMITIES: 2+ the left lower extremity edema. Status post debridement of lateral and posterior left foot. peripheral pulses 2+. Non-tender. - NEUROLOGIC: No focal neurological deficits. CN II-XII grossly intact. - PSYCHIATRIC: Awake, Alert and oriented x 3. Appropriate mood and affect. - SKIN: Tenderness, swelling, erythema of left lower extremity. But improving - LYMPH: No cervical lymphadenopathy. Objective Data Vital Signs Vital Signs: Vital Signs - 24 hr 07/02/22 22:00 07/02/22 20:00 07/03/22 06:00 Temperature 97.2 F L 96.9 F L Pulse Rate 78 73 Respiratory Rate 18 18 Blood Pressure 138/86 153/83 H Pulse Oximetry 96 93 Oxygen Delivery Room Air 07/03/22 08:00 07/03/22 14:00 Temperature 98 F Pulse Rate 85 Respiratory Rate 20 Blood Pressure 123/81 Pulse Oximetry 96 Oxygen Delivery Room Air Intake/Output Intake/Output: Intake & Output 06/30/22 07/01/22 07/02/22 07/03/22 23:59 23:59 23:59 23:59 Intake Total 2969 8387 4396 2080 Balance 2965 9754 3096 2080 Meds/Results Medications: Active Medications Generic Name Dose Route Start Last Admin Trade Name Freq PRN Reason Stop Dose Admin Acetaminophen 650 mg 06/29/22 15:22 Acetaminophen 325 Mg Tablet
[2022-07-03 16:42] LABS: Glucose Point of Care 118 mg/dl (65-105)
[2022-07-03 20:00] VITALS: PULSE 85; RESP 20; O2SAT 96
[2022-07-03] MEDS: GABAPENTIN 300 MG CAPSULE 600 MG PO (20:23)
[2022-07-03] MEDS: ATORVASTATIN 40 MG TABLET PO (20:23)
[2022-07-03 22:00] VITALS: BP 115/61; PULSE 75; RESP 20; TEMP 36.3; O2SAT 94
[2022-07-03 22:15] LABS: Glucose Point of Care 142 mg/dl (65-105)
[2022-07-04] MEDS: metroNIDAZOLE 500 MG/ISO 100ML 500 MG/100 ML BAG 100 MG IVPB ×3 (05:37→21:42)
[2022-07-04 06:00] VITALS: BP 157/91; PULSE 74; RESP 18; TEMP 36.2; O2SAT 62
[2022-07-04 07:58] LABS: Glucose Point of Care 99 mg/dl (65-105)
[2022-07-04] MEDS: DICLOFENAC SOD 75 MG TABLET.EC PO ×2 (08:35→16:08)
[2022-07-04] MEDS: ASPIRIN 81 MG CHEWABLE TABLET PO (08:35)
[2022-07-04] MEDS: ENOXAPARIN 40 MG/0.4 ML SYRINGE SUB-Q (08:35)
[2022-07-04] MEDS: OMEGA 3 POLYUNSAT FATTY ACIDS 1 GM CAP PO ×3 (08:35→16:08)
[2022-07-04] MEDS: HYDROcodone/acetaminophen (*CRX) 5-325 MG TABLET 1 TAB PO ×3 (08:36→20:36)
[2022-07-04] MEDS: SILVERGEL (ELTA) 45 ML 1 APPLIC TOPICAL (08:36)
[2022-07-04 11:40] LABS: Glucose Point of Care 108 mg/dl (65-105)
[2022-07-04] MEDS: MORPHINE SULFATE (*CRX) 4 MG/ML INJ IV PUSH (13:37)
--- NOTE | 2022-07-04 13:48 | PM.IMPN ---
Progress Note: A&P Assessment and Plan (1) Cellulitis: Code(s): L03.90 - Cellulitis, unspecified Status: Acute (2) DM2 (diabetes mellitus, type 2): Code(s): E11.9 - Type 2 diabetes mellitus without complications Status: Acute (3) Neuropathy: Code(s): G62.9 - Polyneuropathy, unspecified Status: Acute (4) Hyperlipidemia: Code(s): E78.5 - Hyperlipidemia, unspecified Status: Acute (5) KAVYA (obstructive sleep apnea): Code(s): G47.33 - Obstructive sleep apnea (adult) (pediatric) Status: Acute Plan Assessment and Plan (1) Cellulitis: ?Code(s): L03.90 - Cellulitis, unspecified ?Status:?Acute ?Assessment and Plan: The patient was placed on vancomycin, Flagyl and cefepime.? The patient had been treated with outpatient antibiotics as well as IV antibiotics in hospital overnight on his cruise vacation. Blood and wound cultures no growth so sore for Cellulitis is improving. But there was large blister anterolateral and posterior of left foot. Status post debridement 07/02. appreciated orthopedic surgeon's evaluation and treatment. there was no involvement of left ankle per orthopedic surgeon's evaluation Continue current antibiotics (2) DM2 (diabetes mellitus, type 2): ?Code(s): E11.9 - Type 2 diabetes mellitus without complications ?Status:?Acute ?Assessment and Plan: The patient was on metformin 3 times a week.? However the patient stated that he is not sure why he is on it and does not think that he is diabetic.? He is agreeable to Accu-Cheks AC and HS with sliding scale insulin and checking A1c. (3) Neuropathy: ?Code(s): G62.9 - Polyneuropathy, unspecified ?Status:?Acute ?Assessment and Plan: Continue with gabapentin (4) Hyperlipidemia: ?Code(s): E78.5 - Hyperlipidemia, unspecified ?Status:?Acute ?Assessment and Plan: Continue with atorvastatin (5) KAVYA (obstructive sleep apnea): ?Code(s): G47.33 - Obstructive sleep apnea (adult) (pediatric) ?Status:?Acute ?Assessment and Plan: -the patient wears a BiPAP at home.? Please titrate to home settings. Subjective Date/time seen: 07/04/22 13:48 Interval history: Saw on exam patient today, patient is someone pain of the left lower leg. Patient denies shortness o breath, chest pain. Afebrile, hemodynamically stable. No new issue or events overnight Exam Narrative: GENERAL: Pleasant, in no acute distress. Well-nourished. - EYES: EOMI. Anicteric. - HENT: Moist mucous membranes. - LUNGS: Clear to auscultation bilaterally, no wheezing, rhonchi, or rales. - CARDIOVASCULAR: Regular rate and rhythm. No murmur. No JVD. - ABDOMEN: Soft, non-tender and non-distended. No palpable masses. - EXTREMITIES: 2+ the left lower extremity edema. Status post debridement of lateral and posterior left foot. peripheral pulses 2+. Non-tender. - NEUROLOGIC: No focal neurological deficits. CN II-XII grossly intact. - PSYCHIATRIC: Awake, Alert and oriented x 3. Appropriate mood and affect. - SKIN: Tenderness, swelling, erythema of left lower extremity. But improving - LYMPH: No cervical lymphadenopathy. Objective Data Vital Signs Vital Signs: Vital Signs - 24 hr 07/03/22 14:00 07/03/22 20:00 07/03/22 22:00 Temperature 98 F 97.4 F L Pulse Rate 85 85 75 Respiratory Rate 20 20 20 Blood Pressure 123/81 115/61 Pulse Oximetry 96 96 94 Oxygen Delivery Room Air 07/04/22 06:00 07/04/22 08:00 Temperature 97.1 F L Pulse Rate 74 Respiratory Rate 18 Blood Pressure 157/91 H Pulse Oximetry 62 L Oxygen Delivery Room Air Intake/Output Intake/Output: Intake & Output 07/01/22 07/02/22 07/03/22 07/04/22 23:59 23:59 23:59 23:59 Intake Total 3630 4396 2860 1560 Output Total 350 Balance 3630 4396 2510 1560 Meds/Results Medications: Active Medications Generic Name Dose Route Start Last Admin Trade Name Freq PRN Reason Stop Dose Ad
[2022-07-04 14:00] VITALS: BP 126/74; PULSE 76; RESP 16; TEMP 36.9; O2SAT 95
[2022-07-04 16:56] LABS: Glucose Point of Care 130 mg/dl (65-105)
[2022-07-04 20:30] LABS: Glucose Point of Care 123 mg/dl (65-105)
[2022-07-04] MEDS: GABAPENTIN 300 MG CAPSULE 600 MG PO (20:35)
[2022-07-04] MEDS: ATORVASTATIN 40 MG TABLET PO (20:36)
[2022-07-04 22:00] VITALS: BP 149/86; PULSE 78; RESP 18; TEMP 36.2; O2SAT 98
[2022-07-05] MEDS: metroNIDAZOLE 500 MG/ISO 100ML 500 MG/100 ML BAG 100 MG IVPB ×3 (05:10→21:31)
[2022-07-05 06:00] VITALS: BP 133/80; PULSE 70; RESP 14; TEMP 36.1; O2SAT 97
[2022-07-05 08:00] VITALS: O2SAT 97
[2022-07-05] MEDS: ASPIRIN 81 MG CHEWABLE TABLET PO (08:02)
[2022-07-05] MEDS: ENOXAPARIN 40 MG/0.4 ML SYRINGE SUB-Q (08:03)
[2022-07-05] MEDS: DICLOFENAC SOD 75 MG TABLET.EC PO ×2 (08:03→16:57)
[2022-07-05] MEDS: OMEGA 3 POLYUNSAT FATTY ACIDS 1 GM CAP PO ×3 (08:03→16:57)
[2022-07-05 08:25] LABS: Glucose Point of Care 89 mg/dl (65-105)
[2022-07-05 08:57] LABS: Hematocrit 43.5 % (42.0-52.0); Hemoglobin 13.4 g/dL (14.0-18.0); Mean Corpuscular HGB Conc 30.8 g/dl (32-36); Mean Corpuscular Volume 97.5 fl (80-100); Mean Platelet Volume 9.9 fl (7.4-10.4); Platelet Count Result 385 k/mm3 (150-375); Red Blood Count 4.46 M/mm3 (4.6-6.20); Red Cell Distribution Width 14.6 % (11.5-14.5); White Blood Count 11.4 K/mm3 (4.5-10.0)
[2022-07-05 09:07] LABS: Anion Gap 0 mmol/L (8-16); Blood Urea Nitrogen 16 mg/dL (9-20); Calcium 8.3 mg/dL (8.4-10.2); Carbon Dioxide 33 mmol/L (22-30); Chloride 100 mmol/L (98-107); Estimated CRCL calculation 158 ml/min; Estimated Glomerular Filt Rate > 60; Glucose 151 mg/dL (65-110); Potassium 4.9 mmol/L (3.4-5.0); Sodium 133 mmol/L (137-145)
[2022-07-05] MEDS: SILVERGEL (ELTA) 45 ML 1 APPLIC TOPICAL (09:16)
[2022-07-05] MEDS: MORPHINE SULFATE (*CRX) 4 MG/ML INJ IV PUSH ×2 (09:16→15:40)
[2022-07-05 09:48] LABS: Vancomycin Trough 9.9 ug/mL (10.0-20.0)
[2022-07-05] MEDS: HYDROcodone/acetaminophen (*CRX) 5-325 MG TABLET 1 TAB PO ×2 (10:55→20:47)
[2022-07-05 12:05] LABS: Glucose Point of Care 131 mg/dl (65-105)
--- NOTE | 2022-07-05 12:57 | PM.IMPN ---
Progress Note: A&P Assessment and Plan (1) Cellulitis: Code(s): L03.90 - Cellulitis, unspecified Status: Acute (2) DM2 (diabetes mellitus, type 2): Code(s): E11.9 - Type 2 diabetes mellitus without complications Status: Acute (3) Neuropathy: Code(s): G62.9 - Polyneuropathy, unspecified Status: Acute (4) Hyperlipidemia: Code(s): E78.5 - Hyperlipidemia, unspecified Status: Acute (5) KAVYA (obstructive sleep apnea): Code(s): G47.33 - Obstructive sleep apnea (adult) (pediatric) Status: Acute Plan Assessment and Plan (1) Cellulitis: ?Code(s): L03.90 - Cellulitis, unspecified ?Status:?Acute ?Assessment and Plan: The patient was placed on vancomycin, Flagyl and cefepime.? The patient had been treated with outpatient antibiotics as well as IV antibiotics in hospital overnight on his cruise vacation. Blood and wound cultures no growth so sore for Cellulitis is improving. But there was large blister anterolateral and posterior of left foot. Status post debridement 07/02. appreciated orthopedic surgeon's evaluation and treatment. there was no involvement of left ankle per orthopedic surgeon's evaluation Continue current antibiotics (2) DM2 (diabetes mellitus, type 2): ?Code(s): E11.9 - Type 2 diabetes mellitus without complications ?Status:?Acute ?Assessment and Plan: The patient was on metformin 3 times a week.? However the patient stated that he is not sure why he is on it and does not think that he is diabetic.? He is agreeable to Accu-Cheks AC and HS with sliding scale insulin and checking A1c. (3) Neuropathy: ?Code(s): G62.9 - Polyneuropathy, unspecified ?Status:?Acute ?Assessment and Plan: Continue with gabapentin (4) Hyperlipidemia: ?Code(s): E78.5 - Hyperlipidemia, unspecified ?Status:?Acute ?Assessment and Plan: Continue with atorvastatin (5) KAVYA (obstructive sleep apnea): ?Code(s): G47.33 - Obstructive sleep apnea (adult) (pediatric) ?Status:?Acute ?Assessment and Plan: -the patient wears a BiPAP at home.? Please titrate to home settings. Subjective Date/time seen: 07/05/22 12:57 Interval history: Saw on exam patient today, patient is someone pain of the left lower leg. Patient denies shortness o breath, chest pain. Afebrile, hemodynamically stable. White blood cell is trending down, no new issue or events overnight Exam Narrative: GENERAL: Pleasant, in no acute distress. Well-nourished. - EYES: EOMI. Anicteric. - HENT: Moist mucous membranes. - LUNGS: Clear to auscultation bilaterally, no wheezing, rhonchi, or rales. - CARDIOVASCULAR: Regular rate and rhythm. No murmur. No JVD. - ABDOMEN: Soft, non-tender and non-distended. No palpable masses. - EXTREMITIES: 2+ the left lower extremity edema. Status post debridement of lateral and posterior left foot. peripheral pulses 2+. Non-tender. - NEUROLOGIC: No focal neurological deficits. CN II-XII grossly intact. - PSYCHIATRIC: Awake, Alert and oriented x 3. Appropriate mood and affect. - SKIN: Tenderness, swelling, erythema of left lower extremity. But improving - LYMPH: No cervical lymphadenopathy. Objective Data Vital Signs Vital Signs: Vital Signs - 24 hr 07/04/22 14:00 07/04/22 22:00 07/04/22 20:00 Temperature 98.5 F 97.2 F L Pulse Rate 76 78 Respiratory Rate 16 18 Blood Pressure 126/74 149/86 H Pulse Oximetry 95 98 Oxygen Delivery Room Air Oxygen Flow Rate 07/05/22 06:00 07/05/22 08:00 Temperature 97 F L Pulse Rate 70 Respiratory Rate 14 Blood Pressure 133/80 Pulse Oximetry 97 97 Oxygen Delivery Nasal Cannula Oxygen Flow Rate 2 Intake/Output Intake/Output: Intake & Output 07/02/22 07/03/22 07/04/22 07/05/22 23:59 23:59 23:59 23:59 Intake Total 4396 2860 3340 690 Output Total 350 Balance 4396 2510 3340 690 Meds/Results Medications: Active Medications Generic Na
[2022-07-05 14:00] VITALS: BP 110/58; PULSE 85; RESP 16; TEMP 36.6; O2SAT 95
[2022-07-05 16:36] LABS: Glucose Point of Care 105 mg/dl (65-105)
[2022-07-05] MEDS: ATORVASTATIN 40 MG TABLET PO (20:45)
[2022-07-05] MEDS: GABAPENTIN 300 MG CAPSULE 600 MG PO (20:46)
[2022-07-05 21:25] LABS: Glucose Point of Care 166 mg/dl (65-105)
[2022-07-05 22:00] VITALS: BP 124/79; PULSE 92; RESP 14; TEMP 36.2; O2SAT 96
[2022-07-06] MEDS: metroNIDAZOLE 500 MG/ISO 100ML 500 MG/100 ML BAG 100 MG IVPB (05:07)
[2022-07-06] MEDS: HYDROcodone/acetaminophen (*CRX) 5-325 MG TABLET 1 TAB PO ×3 (05:08→13:49)
[2022-07-06 06:00] VITALS: BP 120/85; PULSE 72; RESP 16; TEMP 36.3; O2SAT 95
[2022-07-06 06:28] LABS: Estimated CRCL calculation 137 ml/min; Estimated Glomerular Filt Rate > 60
[2022-07-06] MEDS: ASPIRIN 81 MG CHEWABLE TABLET PO (08:09)
[2022-07-06] MEDS: ENOXAPARIN 40 MG/0.4 ML SYRINGE SUB-Q (08:09)
[2022-07-06] MEDS: DICLOFENAC SOD 75 MG TABLET.EC PO (08:09)
[2022-07-06] MEDS: OMEGA 3 POLYUNSAT FATTY ACIDS 1 GM CAP PO ×2 (08:09→13:50)
[2022-07-06 08:21] LABS: Glucose Point of Care 102 mg/dl (65-105)
[2022-07-06] MEDS: SILVERGEL (ELTA) 45 ML 1 APPLIC TOPICAL (10:04)
[2022-07-06 11:50] LABS: Glucose Point of Care 108 mg/dl (65-105)
--- NOTE | 2022-07-06 13:36 | PM.DS ---
DS: Admitting Diagnosis Discharge Date 07/06/22 Admitting Diagnosis Cellulitis with bullae DS: Discharge Diagnosis Discharge Diagnosis Plan Assessment and Plan (1) Cellulitis: ?Code(s): L03.90 - Cellulitis, unspecified ?Status:?Acute ?Assessment and Plan: The patient was placed on vancomycin, Flagyl and cefepime.? The patient had been treated with outpatient antibiotics as well as IV antibiotics in hospital overnight on his cruise vacation. Blood and wound cultures no growth so sore for Cellulitis is improving.? But there was? large blister anterolateral and posterior of left foot.? Status post debridement 07/02. ?appreciated orthopedic surgeon's evaluation and treatment.? there was no involvement of left ankle per orthopedic surgeon's evaluation Continue current antibiotics (2) DM2 (diabetes mellitus, type 2): ?Code(s): E11.9 - Type 2 diabetes mellitus without complications ?Status:?Acute ?Assessment and Plan: The patient was on metformin 3 times a week.? However the patient stated that he is not sure why he is on it and does not think that he is diabetic.? He is agreeable to Accu-Cheks AC and HS with sliding scale insulin and checking A1c. (3) Neuropathy: ?Code(s): G62.9 - Polyneuropathy, unspecified ?Status:?Acute ?Assessment and Plan: Continue with gabapentin (4) Hyperlipidemia: ?Code(s): E78.5 - Hyperlipidemia, unspecified ?Status:?Acute ?Assessment and Plan: Continue with atorvastatin (5) KAVYA (obstructive sleep apnea): ?Code(s): G47.33 - Obstructive sleep apnea (adult) (pediatric) ?Status:?Acute ?Assessment and Plan: -the patient wears a BiPAP at home.? Please titrate to home settings. DS: Summary Hospital Course Hospital Course: Patient presented to the ER on account of left leg redness and blisters. Noted a history of pedicure prior to onset of symptoms and noted while he was on a cruise his leg got intensely red with bullar formation. Patient presented to ER for wrosening symptoms, ortho was consutled and Bullae were debrided. Redness has improved markedly on Vanc, Cefepime and Flagyl, cultures negative. Patient was discharged today wt 5 days of LEvaquin, Linezolid and Flagyl to complete a total of 12 days with wound care. Redness has markedly improved and ulcer looks dry with granulation tissue. Will f/u with PCP in 3-5 days. Time Spent with Patient Time attestation: Total time spent providing and/or coordinating discharge services: DS: Data Data Completed and Pending Labs on day of discharge: Labs from last 24 hours 07/06/22 07/06/22 07/06/22 11:37 08:13 05:44 Creatinine 0.70 Estim Creat Clear Calc 137 Estimated GFR > 60 POC Capillary Glucose 108 H 102 07/05/22 07/05/22 20:33 16:28 Creatinine Estim Creat Clear Calc Estimated GFR POC Capillary Glucose 166 H 105 Discharge Plan Discharge Attending physician on discharge: Marko Melgar Consulting providers: Mohamud Peters ; Pepper Jang Discharging Clinician: Marko Melgar Anticipated Discharge Date/Time: 07/06/22 13:24 Patient Disposition: Home, Self-Care Activity: as tolerated Diet: as tolerated Stand Alone Forms: General Discharge Information Follow-up/Referrals: Azeem,MD Jung [Primary Care Provider] - (f/u in 3-5 days) Mohamud Peters MD [Physician] - (as instructed) Discharge Medications: New oxycodone 5 mg tablet 5 mg PO Q6H PRN (Reason: pain) Qty: 10 0RF linezolid 600 mg tablet 600 mg PO Q12H Qty: 10 0RF levofloxacin 750 mg tablet 750 mg PO DAILY Qty: 5 0RF metronidazole 500 mg tablet 500 mg PO Q8H Qty: 15 0RF Continued atorvastatin 40 mg tablet 40 mg PO HS gabapentin 600 mg tablet 600 mg PO HS baclofen 20 mg tablet 20 mg PO PRN PRN (Reason: Back Pain) diclofenac sodium 75 mg tablet,delayed release (DR/EC) 75 mg PO AC metformi
[2022-07-06] MEDS: LINEZOLID 600 MG TABLET PO (13:48)
--- NOTE | 2022-07-06 16:58 | PC.NURSE ---
patient called at 1600 to say that he did not receive all of the medications at [facility]. Linezolid and oxycodone did not get filled. Talked with Cari at [facility] and she stated that linezolid was waiting for insurance auth and might take a few days, and that oxycodone script never went though. Talked with Dr. Melgar regarding medications, he stated that he will changed the antibiotic and would look into pain script. Dr. Melgar changed the pain med to diclofenac. Patient notified of change to the pain med and patient was upset. Dr. Miranda notified and states that he will talk with Dr. Melgar about the pain medications. [facility] pharmacy is only open to 6 pm, so [facility] [place] [facility] if any new medications placed.
== END 2022-07-06 14:35 | disposition home or self-care (01) | DRG 603 ==
LOC: ANHED 15:29 → ANH3MEDSUR 16:44
PROVIDERS: Hospitalist; Nurse Practitioner; Admitting Provider Family Medicine; Emergency Provider Emergency Medicine; PCP Family Medicine; Visit Provider Internal Medicine
DX: L03.116 Cellulitis of left lower limb (principal); R23.8 Other skin changes; S90.822A Blister (nonthermal), left foot, initial encounter; X58.XXXA Exposure to other specified factors, initial encounter; E11.42 Type 2 diabetes mellitus with diabetic polyneuropathy; E78.5 Hyperlipidemia, unspecified; G47.33 Obstructive sleep apnea (adult) (pediatric); Z20.822 Contact with and (suspected) exposure to COVID-19; E66.3 Overweight; Z68.39 Body mass index [BMI] 39.0-39.9, adult; Z86.718 Personal history of other venous thrombosis and embolism; Z90.81 Acquired absence of spleen; Z87.891 Personal history of nicotine dependence
CPT/HCPCS: 36415; 80048; 80053; 80202; 82565; 82948; 83036; 83605; 83735; 84443; 85025; 85027; 87040; 87070; 87205; 87636; 96365; 96366; 96367; 96372; 96374; 96375; 99285; A9270; G0378; J0692; J1650; J2270; J3370

== ENCOUNTER → 2022-07-31 19:41 | Outpatient (CLI) | payer OTHER, SELFPAY ==
--- NOTE | 2022-08-21 17:53 | WPDSLEEPSTUD ---
Sleep Study Date of Study: 07/31/22 Ordering Provider: Jung Gann, Interpreting Physician: Pepper Jang MD Sleep Study Type: CPAP Titration Height: 1.75 m Weight: 117.934 kg Body Mass Index: 38.4 Neck Circumference (inches): 18 [place]: 19 Reason for Sleep Study * home sleep test with [employer] on 03/27/2022 showing severe obstructive sleep apnea AHI 64.1 with desaturation to 51% and elevated central apnea index of 14.5. Sleep History Dominick Hernandez is a 52-year-old man with severe obstructive sleep apnea at documented on a home sleep test 03/27/2022. He also had an elevated central apnea-hypopnea index. He returns at this time for a titration. He has hyperlipidemia, depression, GERD, anxiety, neuropathy, polyarthralgia and history of tobacco use. The patient frequently awakens from sleep short of breath.? He occasionally awakens at night with heartburn, belching or cough.? He constantly snores loud enough that others complain.? He frequently has trouble sleeping when he has a cold.? He occasionally wakes up gasping for air throughout the night.? He occasionally has breathing problems at night observed by himself or others.? He rarely sweats excessively at night.? He denies having heart palpitations or irregular heartbeats during the night.? He constantly falls asleep during the day and occasionally falls asleep while driving.? He denies sleep paralysis, cataplexy and hypnagogic / hypnopompic hallucinations.? He occasionally has trouble at school or work due to sleepiness.? He occasionally feels afraid of going to sleep.? He denies having nightmares.? He rarely remembers his dreams.? He constantly has thoughts racing through his mind.??He frequently feels sad, depressed and anxious.? He constantly has muscular tension.? He occasionally notices parts of his body jerk.??He frequently kicks during the night.? He constantly experiences crawling and aching feelings in his legs and occasionally has leg pain during the night.? He denies grinding his teeth during sleep and awakening with morning jaw pain.? He is frequently bothered by pain during the day but rarely awakened by pain during the night.? He constantly wakes up feeling stiff in the morning.? He constantly wakes up with sore or achy muscles.? He constantly wakes up with pain in the neck, spine or other joints.? The patient goes to bed between 9-11 p.m. on both weekdays and weekends.? He is unsure how long it takes him to fall asleep.? He wakes up 4-6 times throughout the night for unknown reasons.? It takes him 10-60 minutes to fall asleep.? He wakes up at 4:30 a.m. on weekdays for work.? He does not have a set wake-up time on the weekends.? Typically gets 3-4 hours of interrupted sleep throughout the night.? He does not stay in bed after waking up in the morning.? He currently lives alone.? He will consume caffeinated beverages within 2 hours of bedtime.? He does not engage in physical exercise before bedtime.? He will watch television before falling asleep.? He will take naps in the afternoon or the evening and they are refreshing. The patient drinks 3 caffeinated beverages per day.? The patient used to smoke cigarettes.? He does not consume alcohol daily.? He denies recreational drug use. [facility] Past Medical History Medical History (Updated 08/21/22 @ 17:58 by Pepper Jang MD) DM2 (diabetes mellitus, type 2) DVT (deep venous thrombosis) Hyperlipidemia Neuropathy KAVYA (obstructive sleep apnea) Pancreatitis Surgical History Surgical History H/O splenectomy History of pancreatic surgery History of tonsillectomy and adenoidectomy S/P IVC filter Family History Family History Mother Hypertension Thyroid condition Hyperlipidemia Father Kidney disease Lymphoma Sibling Hyperlipidemia Neuropathy Other Diabetes mellitus Social History Social History
[2022-08-21 18:19] VITALS: BMI 38.4
== END ==
PROVIDERS: PCP Family Medicine; Visit Provider Family Medicine
DX: G47.33 Obstructive sleep apnea (adult) (pediatric) (principal); Z68.38 Body mass index [BMI] 38.0-38.9, adult
CPT/HCPCS: 95811

== ENCOUNTER 2022-09-19 07:22 | Outpatient (CLI) | payer OTHER, SELFPAY ==
[2022-09-19 08:11] LABS: Basophils Absolute Auto 0.1 K/mm3 (0.0-0.1); Basophils Percent Auto 0.9 % (0.2-1.2); Eosinophils Absolute Auto 0.6 K/mm3 (0-0.3); Eosinophils Percent Auto 5.4 % (0-4.4); Hematocrit 44.6 % (42.0-52.0); Hemoglobin 14.3 g/dL (14.0-18.0); Immature Granulocyte Absolute 0.24 K/mm3 (0.00-0.031); Immature Granulocyte Percent A 2.2 % (0-0.5); Lymphocytes Absolute Auto 2.35 K/mm3 (0.9-3.2); Lymphocytes Percent Auto 21.3 % (18.3-44.2); Mean Corpuscular HGB Conc 32.1 g/dl (32-36); Mean Corpuscular Hemoglobin 29.5 pg (26-34); Mean Platelet Volume 10.5 fl (7.4-10.4); Monocytes Absolute Auto 1.1 K/mm3 (0.1-0.6); Monocytes Percent Auto 10.1 % (2.6-8.5); Neutrophils Absolute Auto 6.6 K/mm3 (1.3-6.7); Neutrophils Percent Auto 60.1 % (45.5-73.1); Platelet Count Result 375 k/mm3 (150-375); Red Blood Count 4.85 M/mm3 (4.6-6.20); White Blood Count 11.1 K/mm3 (4.5-10.0)
[2022-09-19 08:12] LABS: Alanine Aminotransferase 29 U/L (6-50); Albumin Level 4.1 g/dL (3.5-5.1); Alkaline Phosphatase 63 U/L (38-126); Anion Gap 6 mmol/L (8-16); Aspartate Amino Transferase 23 U/L (17-59); Bilirubin,Total 0.6 mg/dL (0.2-1.3); Blood Urea Nitrogen 16 mg/dL (9-20); Calcium 9.5 mg/dL (8.4-10.2); Carbon Dioxide 32 mmol/L (22-30); Chloride 103 mmol/L (98-107); Cholesterol 141 mg/dL (0-200); Estimated Glomerular Filt Rate > 60; Glucose 117 mg/dL (65-110); HDL Direct 26 mg/dL; Potassium 4.3 mmol/L (3.4-5.0); Sodium 141 mmol/L (137-145); Triglycerides 158 mg/dL (<150)
[2022-09-19 08:23] LABS: LDL Cholesterol Direct 86 mg/dL
[2022-09-19 08:28] LABS: Vitamin D 25 Hydroxy 37.8 ng/mL
[2022-09-19 08:42] LABS: Prostate Specific Antigen 1.5 ng/mL (< OR = 4.0)
== END 2022-09-19 07:23 | disposition home or self-care (01) ==
LOC: ANHLAB 07:23
PROVIDERS: PCP Family Medicine; Visit Provider Family Medicine
DX: E55.9 Vitamin D deficiency, unspecified (principal); E78.5 Hyperlipidemia, unspecified; R53.83 Other fatigue; Z12.5 Encounter for screening for malignant neoplasm of prostate
CPT/HCPCS: 36415; 80053; 80061; 82306; 84153; 85025; G0103

== ENCOUNTER 2022-09-29 13:19 | Outpatient (CLI) | payer OTHER, SELFPAY ==
--- NOTE | 2022-09-29 13:57 | ECHO_ITS ---
Patient Info Name: Dominick Hernandez Age: 52 years : 1970 Gender: Male Ht: 69 in Wt: 270 lbs BSA: 2.50 m2 HR: 74 bpm BP: 134 / 89 mmHg Technical Quality: Good Exam Date: 09/29/2022 2:04 PM Exam Location: [facility] Patient Status: Outpatient Admit Date: 09/29/2022 Staff Ordering Physician: Mya Trejo DO Halftone Operator: Susanne Jaramillo RDCS Attending Provider: Mya Trejo DO Referring Physician: Neil THOMAS; Exam Type: CA echo doppler color flow Study Info Indications G47.31 - PRIMARY CENTRAL SLEEP APNEA Complete two-dimensional, color flow and Doppler transthoracic echocardiogram is performed. Summary 1. Complete two-dimensional, color flow and Doppler transthoracic echocardiogram is performed. 2. Left ventricular chamber dimension is normal. 3. Left ventricular systolic function is normal, estimated at 55-60%. 4. The left ventricular diastolic function is normal. 5. E/e' 8 is minimally elevated. 6. Left atrial chamber dimension is mildly enlarged. 7. The mitral valve has mildly calcified annulus. 8. The aortic root size at the sinus of Valsalva is borderline dilated at 4.1 cm. Left Ventricle E/e' 8 is minimally elevated. Left ventricular chamber dimension is normal. Left ventricular systolic function is normal, estimated at 55-60%. The left ventricular diastolic function is normal. Right Ventricle Right ventricular systolic function is normal and with normal TAPSE 2.7 cm. Right ventricular chamber dimension is normal. Left Atria Left atrial chamber dimension is mildly enlarged. Right Atria Right atrial chamber dimension is normal. Aortic Valve The aortic valve is trileaflet. There is no aortic valve stenosis. There is no aortic valve regurgitation. Mitral Valve The mitral valve has mildly calcified annulus. There is no mitral valve stenosis. There is no mitral valve regurgitation. Tricuspid Valve There is no tricuspid valve regurgitation. Pericardium/Pleural There is no pericardial effusion. Inferior Vena Cava Normal inferior vena cava with >50% collapse upon inspiration consistent with normal right atrial pressure, 5 mmHg. Aorta The aortic root size at the sinus of Valsalva is borderline dilated at 4.1 cm. Left Ventricular Outflow Tract Name Value Normal LVOT 2D LVOT Diameter 2.1 cm LVOT Doppler LVOT Peak Gradient 6 mmHg LVOT Mean Gradient 3 mmHg LVOT VTI 27 cm LVOT VTI/AV VTI Ratio 0.8 LVOT Stroke Volume 98 ml LVOT CO 6.6 l/min LVOT CI 2.7 l/min/m2 Pulmonic Valve Name Value Normal RVOT Doppler RVOT Peak Gradient 1 mmHg PV Doppler PV Peak Gradient 4 mmHg Mi
== END 2022-09-29 13:20 | disposition home or self-care (01) ==
LOC: ANHCARD 13:21
PROVIDERS: PCP Family Medicine; Visit Provider Family Medicine
DX: G47.31 Primary central sleep apnea (principal)
CPT/HCPCS: 93306

== ENCOUNTER 2022-11-11 16:35 | Outpatient (CLI) | payer OTHER, SELFPAY ==
--- NOTE | ~2022-11-11 | US_ITS ---
EXAMINATION: US venous doppler [facility] DATE: 11/11/2022 17:02 INDICATION: Soft tissue disorder with lower limb pain, swelling and erythema. TECHNIQUE: Grayscale ultrasound images without and with compression and Doppler ultrasound images of the left lower extremity veins were obtained. COMPARISON: None. FINDINGS: The visualized portions of left common femoral vein, profunda (deep) femoral vein, femoral vein, popl iteal vein, gastrocnemius vein and greater saphenous vein outflow are patent. The region of the poste rior tibial and peroneal veins are unable to be visualized due to obscuration resulting from subcutan eous edema at the calf. IMPRESSION: 1. No deep venous thrombosis in the left lower limb. Reviewed, dictated and finalized at location A.
[2022-11-11 17:45] LABS: Basophils Absolute Auto 0.1 K/mm3 (0.0-0.1); Basophils Percent Auto 0.9 % (0.2-1.2); Eosinophils Absolute Auto 0.4 K/mm3 (0-0.3); Eosinophils Percent Auto 3.4 % (0-4.4); Hematocrit 43.2 % (42.0-52.0); Hemoglobin 14.2 g/dL (14.0-18.0); Immature Granulocyte Absolute 0.45 K/mm3 (0.00-0.031); Immature Granulocyte Percent A 3.6 % (0-0.5); Lymphocytes Percent Auto 22.3 % (18.3-44.2); Mean Corpuscular HGB Conc 32.9 g/dl (32-36); Mean Corpuscular Hemoglobin 29.7 pg (26-34); Mean Corpuscular Volume 90.4 fl (80-100); Mean Platelet Volume 9.7 fl (7.4-10.4); Monocytes Absolute Auto 1.2 K/mm3 (0.1-0.6); Monocytes Percent Auto 9.2 % (2.6-8.5); Neutrophils Absolute Auto 7.6 K/mm3 (1.3-6.7); Neutrophils Percent Auto 60.6 % (45.5-73.1); Platelet Count Result 334 k/mm3 (150-375); Red Blood Count 4.78 M/mm3 (4.6-6.20); Red Cell Distribution Width 14.1 % (11.5-14.5); White Blood Count 12.6 K/mm3 (4.5-10.0)
[2022-11-11 17:59] LABS: Alanine Aminotransferase 28 U/L (6-50); Albumin Level 4.3 g/dL (3.5-5.1); Alkaline Phosphatase 63 U/L (38-126); Anion Gap 5 mmol/L (8-16); Aspartate Amino Transferase 34 U/L (17-59); Bilirubin,Total 0.7 mg/dL (0.2-1.3); Blood Urea Nitrogen 15 mg/dL (9-20); Calcium 9.3 mg/dL (8.4-10.2); Carbon Dioxide 30 mmol/L (22-30); Chloride 105 mmol/L (98-107); Estimated Glomerular Filt Rate > 60; Glucose 78 mg/dL (65-110); Potassium 4.1 mmol/L (3.4-5.0); Sodium 140 mmol/L (137-145)
== END 2022-11-11 16:36 | disposition home or self-care (01) ==
PROVIDERS: PCP Family Medicine; Visit Provider Family Medicine
DX: M79.89 Other specified soft tissue disorders (principal)
CPT/HCPCS: 36415; 80053; 85025; 93971

== ENCOUNTER 2022-12-31 14:53 | Outpatient (CLI) | payer OTHER, SELFPAY ==
--- NOTE | ~2022-12-31 | XR_ITS ---
EXAMINATION: XR chest 2V DATE: 12/31/2022 15:10 INDICATION: Shortness of breath with intermittent cough TECHNIQUE: PA and lateral views of the chest were obtained. COMPARISON: None FINDINGS: Anatomic. Azygos lobe and fissure at the medial aspect of the right upper lung zone. The lungs are cl ear with no focal airspace opacities, pulmonary edema, pleural effusion or pneumothorax. The cardiome diastinal silhouette is normal. Mild anterior wedging of a few lower thoracic vertebral bodies and mi ld to moderate spondylosis. IMPRESSION: 1. No acute cardiopulmonary disease. Reviewed, dictated and finalized at location A.
== END 2022-12-31 14:54 | disposition home or self-care (01) ==
PROVIDERS: PCP Family Medicine; Visit Provider Nurse Practitioner
DX: R06.02 Shortness of breath (principal)
CPT/HCPCS: 71046

== ENCOUNTER 2023-07-23 00:06 | Day surgery (SDC) | payer OTHER, SELFPAY ==
[2023-07-13 13:03] VITALS: BMI 38.7
[2023-07-23 06:18] VITALS: BP 122/89; PULSE 76; RESP 18; TEMP 36.4; O2SAT 96
[2023-07-23] MEDS: LACTATED RINGERS 1,000 ML 150 ML IV CONT (06:32)
--- NOTE | 2023-07-23 07:21 | WPDANESEPPF ---
Anes - Initial Pre Proc Eval Procedure: Operation Date: 07/23/23 07:30 Proposed Procedures p Colonoscopy - Vincenzo Duke MD Date/Time: 07/23/23 07:21 Surgeon: Vincenzo Duke MD Pre Op Diagnosis: Family history of malignant neoplasm of digestive Patient Data Age: 52 Gender: M Height: 1.73 m Weight: 112 kg Last Vital Signs Temp 97.6 F 07/23/23 06:18 Pulse 76 07/23/23 06:18 Resp 18 07/23/23 06:18 BP 122/89 07/23/23 06:18 Pulse Ox 96 07/23/23 06:18 O2 Del Method Room Air 07/23/23 06:18 Allergies Allergy/AdvReac Type Severity Reaction Status Date / Time No Known Allergies Allergy Verified 07/23/23 06:15 Home Medications Medication Instructions Recorded Confirmed Type aspirin 81 mg tablet 81 mg PO DAILY 06/29/22 07/13/23 History omega-3 fatty acids 1,000 mg PO HS 06/29/22 07/13/23 History PAP Equipment #1 ea 08/28/22 05/19/23 Rx emvyflmesskn-cib-pnazo acid-vit 1 tablet PO DAILY 12/31/22 07/13/23 History K-lycop 400 mcg-20 mcg-370 mcg tablet albuterol sulfate 90 mcg/actuation 1 inh inhalation Q4H PRN shortness 03/18/23 07/13/23 Rx aerosol inhaler of breath or wheezing #6.7 grams atorvastatin 40 mg tablet 40 mg PO HS #90 tabs 03/22/23 07/13/23 Rx gabapentin 600 mg tablet 600 mg PO HS #90 tabs 03/22/23 07/13/23 Rx phentermine 37.5 mg tablet 37.5 mg PO DAILY #30 tabs 05/19/23 07/13/23 Rx furosemide 20 mg tablet 20 mg PO QAM PRN edema #30 tabs 07/21/23 07/23/23 Rx diclofenac sodium 75 mg 75 mg PO BIDWMEAL pain #180 tabs 07/22/23 07/23/23 Rx tablet,delayed release Patient hx anesthesia problems: none Family hx anesthesia problems: none Results Review: All pre-operative results and documents have been reviewed as part of the pre-operative evaluation. PMFSH Past Medical History Medical History Arthritis DM2 (diabetes mellitus, type 2) DVT (deep venous thrombosis) Hyperlipidemia [place] fracture of maxilla with delayed healing Neuropathy KAVYA (obstructive sleep apnea) Pancreatitis Surgical History Surgical History H/O splenectomy History of pancreatic surgery History of tonsillectomy and adenoidectomy S/P IVC filter Family History Family History Mother Hypertension Thyroid condition Hyperlipidemia Father Kidney disease Lymphoma Sibling Hyperlipidemia Neuropathy Other Diabetes mellitus Social History Social History (Updated 05/19/23 @ 15:05 by Michelle Cai [facility]) Social History: He lives alone with his PET rabbit. He works for [employer]. He Runs the kitchen. He has no children and he is single. Code status full code Smoking packs per day: 1 Smoking cigarettes per day: 20.0 Years smoked: 38 Smoking pack-years: 38.00 Smoking status: Former smoker Tobacco type: cigarettes Second hand tobacco smoke exposure: No Alcohol intake: current Drinks per week: 1 Substance use: never Substance use type: does not use Last use: 2000 Do You Feel Safe in your Home?: Yes Lack of Transportation: No Lack of Food: Never True Current Housing: I Have Housing Concerned About Future Housing: No Difficulty Paying Gas/Electric Bills: No Difficulty Paying for Meds: No Currently Unemployed: No Education: High School Diploma/GED Difficulty w/ Childcare or Family Care: No Living arrangements: with family Spiritual care concerns: No Anes - Eval Final PreProcedure Day of Procedure 07/23/23 07:21 Patient weight: obese Heart: regular rate and rhythm Lungs: clear to auscultation Airway: Mallampati scale class III Neurological: alert and oriented Last oral intake: >/= 8 hours ASA classification: III Emergent: no Anesthetic plan: proceed Anesthesia type and monitoring: general GI
--- NOTE | 2023-07-23 07:28 | PM.HPGS ---
History of Present Illness History of Present Illness Consent: Risks, benefits, and alternatives have been discussed and questions answered. Patient agrees to proceed with procedure. Chief complaint: Family history of malignant neoplasm of digestive Narrative: Dominick Hernandez is a 52 year old male here for colonoscopy, last one 5 years ago, father had colon cancer Review of Systems Constitutional: Constitutional: Denies headache(s) and Denies weakness Eyes: Eyes: Denies blurry vision ENT: Reports Normal hearing present, Denies headache(s) and Denies neck pain Cardiovascular: Cardiovascular: Denies chest pain and Denies dyspnea Respiratory: Respiratory: Denies dyspnea Gastrointestinal: Gastrointestinal: Reports no additional gastrointestinal complaints Genitourinary: Genitourinary: Denies dysuria Musculoskeletal: Musculoskeletal: Denies neck pain Integumentary/Breasts: Skin/Breast: Denies dry skin Neurologic: Reports Normal hearing present, Denies headache(s) and Denies weakness Psychiatric: Psychiatric: Denies anxiety Endocrine: Endocrine: Denies change in body appearance Hematologic/Lymphatic: Hematologic/Lymphatic: Denies easy bleeding Allergic/Immunologic: Allergic/Immunologic: Denies urticaria PMFSH Past Medical History Medical History Arthritis DM2 (diabetes mellitus, type 2) DVT (deep venous thrombosis) Hyperlipidemia [place] fracture of maxilla with delayed healing Neuropathy KAVYA (obstructive sleep apnea) Pancreatitis Surgical History Surgical History H/O splenectomy History of pancreatic surgery History of tonsillectomy and adenoidectomy S/P IVC filter Family History Family History Mother Hypertension Thyroid condition Hyperlipidemia Father Kidney disease Lymphoma Sibling Hyperlipidemia Neuropathy Other Diabetes mellitus Social History Social History (Updated 05/19/23 @ 15:05 by Michelle Cai CMA) Social History: He lives alone with his PET rabbit. 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 Code status full code Smoking packs per day: 1 Smoking cigarettes per day: 20.0 Years smoked: 38 Smoking pack-years: 38.00 Smoking status: Former smoker Tobacco type: cigarettes Second hand tobacco smoke exposure: No Alcohol intake: current Drinks per week: 1 Substance use: never Substance use type: does not use Last use: 2000 Do You Feel Safe in your Home?: Yes Lack of Transportation: No Lack of Food: Never True Current Housing: I Have Housing Concerned About Future Housing: No Difficulty Paying Gas/Electric Bills: No Difficulty Paying for Meds: No Currently Unemployed: No Education: High School Diploma/GED Difficulty w/ Childcare or Family Care: No Living arrangements: with family Spiritual care concerns: No Meds Home Medications and Allergies Home Medications Medication Instructions Recorded Confirmed Type aspirin 81 mg tablet 81 mg PO DAILY 06/29/22 07/13/23 History omega-3 fatty acids 1,000 mg PO HS 06/29/22 07/13/23 History PAP Equipment #1 ea 08/28/22 05/19/23 Rx kqjecbrluwqg-vee-yrphk acid-vit 1 tablet PO DAILY 12/31/22 07/13/23 History K-lycop 400 mcg-20 mcg-370 mcg tablet albuterol sulfate 90 mcg/actuation 1 inh inhalation Q4H PRN shortness 03/18/23 07/13/23 Rx aerosol inhaler of breath or wheezing #6.7 grams atorvastatin 40 mg tablet 40 mg PO HS #90 tabs 03/22/23 07/13/23 Rx gabapentin 600 mg tablet 600 mg PO HS #90 tabs 03/22/23 07/13/23 Rx phentermine 37.5 mg tablet 37.5 mg PO DAILY #30 tabs 05/19/23 07/13/23 Rx furosemide 20 mg tablet 20 mg PO QAM PRN edema #30 tabs 07/21/23 07/23/23 Rx diclofenac sodium 75 mg 75 mg PO BIDWMEAL pain #180 tabs 07/22/23
[2023-07-23 07:55] VITALS: BP 117/69; PULSE 74; RESP 19; O2SAT 97
[2023-07-23 08:05] VITALS: BP 111/70; PULSE 71; RESP 15; O2SAT 100
[2023-07-23 08:15] VITALS: BP 124/76; PULSE 65; RESP 15; O2SAT 100
== END 2023-07-23 08:22 | disposition home or self-care (01) ==
PROVIDERS: PCP Family Medicine; Visit Provider Internal Medicine Gastroenterology
PROC: 0DJD8ZZ Inspection of Lower Intestinal Tract, Via Natural or Artificial Opening Endoscopic (ICD-10-PCS; CPT 45378; principal; 2023-07-23 07:30)
DX: Z12.11 Encounter for screening for malignant neoplasm of colon (principal); K64.8 Other hemorrhoids; Z80.0 Family history of malignant neoplasm of digestive organs; E78.5 Hyperlipidemia, unspecified; E11.40 Type 2 diabetes mellitus with diabetic neuropathy, unspecified; G47.33 Obstructive sleep apnea (adult) (pediatric); Z86.718 Personal history of other venous thrombosis and embolism; Z79.82 Long term (current) use of aspirin; Z79.51 Long term (current) use of inhaled steroids; Z87.891 Personal history of nicotine dependence; E66.9 Obesity, unspecified; Z68.37 Body mass index [BMI] 37.0-37.9, adult
CPT/HCPCS: 45378; J2704; J7120

== ENCOUNTER 2024-03-25 09:19 | Outpatient (CLI) | payer OTHER, SELFPAY ==
[2024-03-25 10:24] LABS: Basophils Absolute Auto 0.1 K/mm3 (0.0-0.1); Basophils Percent Auto 0.8 % (0.2-1.2); Eosinophils Absolute Auto 0.3 K/mm3 (0-0.3); Eosinophils Percent Auto 4.1 % (0-4.4); Hematocrit 44.2 % (42.0-52.0); Hemoglobin 14.6 g/dL (14.0-18.0); Immature Granulocyte Absolute 0.03 K/mm3 (0.00-0.031); Immature Granulocyte Percent A 0.4 % (0-0.5); Lymphocytes Absolute Auto 1.91 K/mm3 (0.9-3.2); Lymphocytes Percent Auto 25.2 % (18.3-44.2); Mean Corpuscular Hemoglobin 30.7 pg (26-34); Mean Corpuscular Volume 92.9 fl (80-100); Mean Platelet Volume 10.1 fl (7.4-10.4); Monocytes Absolute Auto 0.9 K/mm3 (0.1-0.6); Monocytes Percent Auto 12.3 % (2.6-8.5); Neutrophils Absolute Auto 4.3 K/mm3 (1.3-6.7); Neutrophils Percent Auto 57.2 % (45.5-73.1); Platelet Count Result 364 k/mm3 (150-375); Red Blood Count 4.76 M/mm3 (4.6-6.20); Red Cell Distribution Width 13.3 % (11.5-14.5); White Blood Count 7.6 K/mm3 (4.5-10.0)
[2024-03-25 10:36] LABS: Alanine Aminotransferase 31 U/L (6-50); Albumin Level 4.4 g/dL (3.5-5.1); Alkaline Phosphatase 61 U/L (38-126); Anion Gap 5 mmol/L (4-12); Aspartate Amino Transferase 26 U/L (17-59); Bilirubin,Total 0.6 mg/dL (0.2-1.3); Blood Urea Nitrogen 23 mg/dL (9-20); Calcium 9.7 mg/dL (8.4-10.2); Carbon Dioxide 30 mmol/L (22-30); Chloride 104 mmol/L (98-107); Cholesterol 185 mg/dL (0-200); Estimated Glomerular Filt Rate > 60; Glucose 94 mg/dL (65-110); HDL Direct 38 mg/dL; Potassium 4.5 mmol/L (3.4-5.0); Sodium 139 mmol/L (137-145); Triglycerides 196 mg/dL (<150)
[2024-03-25 10:38] LABS: Hemoglobin A1C 5.5 % (<5.7)
[2024-03-25 10:47] LABS: LDL Cholesterol Direct 78 mg/dL
[2024-03-25 11:05] LABS: Prostate Specific Antigen 2.4 ng/mL (< OR = 4.0)
[2024-03-25 11:36] LABS: Vitamin D 25 Hydroxy 47.6 ng/mL
[2024-03-25 12:02] LABS: Free T4 Free Thyroxine 0.94 ng/mL (0.78-2.19)
== END 2024-03-25 09:20 | disposition home or self-care (01) ==
LOC: ANHLAB 09:21
PROVIDERS: PCP Family Medicine; Visit Provider Family Medicine
DX: R73.03 Prediabetes (principal); E78.5 Hyperlipidemia, unspecified; R53.83 Other fatigue; E55.9 Vitamin D deficiency, unspecified
CPT/HCPCS: 36415; 80053; 80061; 82306; 82728; 83036; 84153; 84439; 84443; 85025; G0103

== ENCOUNTER 2025-03-10 07:43 | Outpatient (CLI) | payer OTHER, SELFPAY ==
[2025-03-10 08:35] LABS: Hematocrit 44.1 % (42.0-52.0); Hemoglobin 14.4 g/dL (14.0-18.0); Immature Granulocyte Percent A 0.3 % (0-0.5); Lymphocytes Absolute Auto 1.78 K/mm3 (0.9-3.2); Mean Corpuscular HGB Conc 32.7 g/dl (32-36); Mean Corpuscular Hemoglobin 29.9 pg (26-34); Mean Corpuscular Volume 91.7 fl (80-100); Nucleated Red Blood Cells Absolute Auto 0.000 K/mm3 (0.0-0.012); Nucleated Red Blood Cells Perc 0.0 % (0.0-0.2); Platelet Count Result 311 k/mm3 (150-375); Red Blood Count 4.81 M/mm3 (4.6-6.20); White Blood Count 7.6 K/mm3 (4.5-10.0)
[2025-03-10 08:58] LABS: Alanine Aminotransferase 34 U/L (6-50); Albumin Level 4.2 g/dL (3.5-5.1); Alkaline Phosphatase 61 U/L (38-126); Anion Gap 6 mmol/L (4-12); Aspartate Amino Transferase 31 U/L (17-59); Bilirubin,Total 0.5 mg/dL (0.2-1.3); Blood Urea Nitrogen 21 mg/dL (9-20); Calcium 9.2 mg/dL (8.4-10.2); Carbon Dioxide 30 mmol/L (22-30); Chloride 104 mmol/L (98-107); Cholesterol 185 mg/dL (0-200); Estimated Glomerular Filt Rate > 60; Glucose 99 mg/dL (65-110); HDL Direct 36 mg/dL; Potassium 4.6 mmol/L (3.4-5.0); Sodium 140 mmol/L (137-145); Total Protein 7.4 g/dL (6.3-8.2); Triglycerides 155 mg/dL (<150)
[2025-03-10 09:19] LABS: Free T4 Free Thyroxine 1.15 ng/dL (0.78-2.19)
[2025-03-10 09:23] LABS: Hemoglobin A1C 5.4 % (<5.7)
[2025-03-10 09:42] LABS: Prostate Specific Antigen 2.4 ng/mL (< OR = 4.0); Thyroid Stimulating Hormone 1.060 uIU/mL (0.465-4.680)
== END 2025-03-10 07:44 | disposition home or self-care (01) ==
LOC: ANHLAB 07:44
PROVIDERS: PCP Family Medicine; Visit Provider Family Medicine
DX: Z00.00 Encounter for general adult medical examination without abnormal findings (principal); E78.5 Hyperlipidemia, unspecified; R53.83 Other fatigue; R73.9 Hyperglycemia, unspecified; E55.9 Vitamin D deficiency, unspecified; Z12.5 Encounter for screening for malignant neoplasm of prostate
CPT/HCPCS: 36415; 80053; 80061; 82306; 83036; 84153; 84439; 84443; 85025; G0103